=== PATIENT | male | born 1940 | race Caucasian/White ===

== ENCOUNTER 2016-09-19 19:14 | Inpatient (IN) | payer OTHER ==
[2016-09-19] MEDS ORDERED: NS 1,000 ML IV ONE (20:32)
--- NOTE | 2016-09-19 20:34 | PROVIDER DOCUMENTATION ---
HPI-Fever <Scott Figueroa - Last Filed: 09/19/16 22:57> - General Source: patient, family - History of Present Illness-Fever Fever Severity/Quality: reports: greater than 102 F (102.4 in triage) Onset/Duration: reports: gradual, 1 week ago Timing: reports: still present Severity: reports: moderate Context: reports: decreased mental status, confusion Cognitive Baseline: alert, oriented x3 Associated Symptoms: reports: cough, fatigue, fever/chills, headaches, shortness of breath, weakness, trouble walking. denies: anxiety, arm pain, back /neck pain, chest pain, constipation, diarrhea, nausea, vomiting <Justin Sanchez - Last Filed: 09/20/16 00:34> - General Chief Complaint: Fall Stated Complaint: FALL, HIT HEAD X2 Time Seen by Provider: 09/19/16 19:43 Allergies/Adverse Reactions: Patient Allergies Allergy/AdvReac Type Severity Reaction Status Date / Time No Known Allergies Allergy Verified 09/19/16 20:40 Home Medications: Home Medication List Medication Instructions Recorded Confirmed Last Taken Type Aspirin 81 mg PO DAILY 12/08/12 09/19/16 09/19/16 History Memantine HCl [Namenda] 10 mg PO BID 03/27/16 09/19/16 09/19/16 History Roflumilast [Daliresp] 1 each PO DAILY 03/27/16 09/19/16 09/19/16 History Lisinopril/Hydrochlorothiazide 1 each PO DAILY 09/19/16 09/19/16 09/19/16 History [Lisinopril-Hctz 20-12.5 mg Tab] - History of Present Illness-Fever Nature of Presenting Problem: Pt is a 76 yom who presents to ER with CC of falling x2 today. Pt's daughter reports that pt was going to the bathroom when he fell and hit his head on the wall behind the toilet. Pt then got up and was walking down the fong when he fell and hit his head again on the wall. Pt does report having a mild headache, but denies loc/cp/sob On exam, pt did not have any obvious signs of injury, but family does reports that pt has been slowly losing his mobility for approximately 1 week. Pt's daughter also reports that pt has developed a green sputum cough x1 week. In triage, pt had fever of 102.4. (Justin Sanchez) Review of Systems - Adult - REVIEW OF SYSTEMS - ADULT Constitutional: reports: fever, fatique. denies: chills, night sweats Eyes: reports: no symptoms reported Ears, Nose, Mouth & Throat: reports: no symptoms reported Cardiovascular: denies: chest pain, edema, heart murmur, irregular heart rate, palpitations, poor circulation, syncope Respiratory: reports: cough, excessive sputum production. denies: chronic cough , dyspnea on exertion, hemoptysis, pleurisy, shortness of breath, wheezing Gastrointestinal: reports: no symptoms reported Genitourinary: denies: dysuria, flank pain, frequent UTI's, hematuria Musculoskeletal: denies: bone pain, back pain, frequent leg cramps, muscle aches , muscle weakness, neck pain Integumentary: reports: no symptoms reported Neurological: reports: headache/migraines, loss of balance. denies: ataxia, dizziness/vertigo, numbness, paresthesia, seizure, slurred speech, syncope, tremors Psychiatric: reports: other (early onset dementia, per family). denies: anxiety , anti-depressant use, alcohol/drug dependence, depression, emotional problems, insomnia, panic attacks, suicidal thoughts Endocrine: reports: no symptoms reported Hematologic/Lymphatic: reports: no symptoms reported Allergic/Immunologic: reports: no symptoms reported All Other Systems: Reviewed and Negative <Justin Sanchez - Last Filed: 09/20/16 00:34> Past History - Adult - PAST MEDICAL HISTORY-ADULT Review of Records: reports: Nursing Assessment Review, Medications Reviewed - IMMUNIZATION STATUS Childhood Immunizations: See Nurse Assessment Flu Vaccine: See Nurse Assessment <Justin Sanchez - Last Filed: 09/20/16 00:34> Physical Exam-General - PHYSICAL EXAM-ADULT Initial Vital Signs Reviewed: Yes - CONSTITUTIONAL General Appearance: appears well, alert, no apparent distress, lethargic. negative: cachetic, obese, thin, anxious - NECK Neck: non-tender, full range of motion, supple - RESPIRATORY Respiratory: chest non-tender, lungs clear, normal breath sounds. negative: respiratory distress, decreased breath sounds, accessory muscle use, wheezing - CARDIOVASCULAR Cardiovascular: normal peripheral pulses, tachycardia. negative: bradycardia, irregularly irregular - MUSCULOSKELETAL Back Exam: no CVA tenderness, no vertebral tenderness. negative: CVA tenderness , decreased range of motion, muscle spasm, swelling, vertebral tenderness Extremity: normal range of motion, non-tender, normal gait, pedal edema (+1 pitting bilaterally). negative: erythema, inflammation, swelling, tenderness - SKIN Integumentary: swelling (+1 pitting edema bilateral lower extremities). negative: abrasion(s), erythema, laceration(s), tenderness, warm - NEUROLOGIC Neurologic: grossly normal, no motor/sensory deficits - PSYCHIATRIC Psych/Mental Status: normal mood/affect, normal thought content, normal thought process, oriented x 3 <Justin Sanchez - Last Filed: 09/20/16 00:34> Progress <Scott Figueroa - Last Filed: 09/19/16 22:57> - XRAY 1 XRAY: Bilateral XRAY Study: Chest Impression: See EMR Report (Lower infiltrate appreciated on lateral view only; Question L sided infiltrate) XRAY Interpretation: See report - CT/MRI 1 CT Study: Head Impression: See EMR Report CT Results: Mild atrophy, unchanged; Otherwise NAD - CONSULTS/PCP/HOSPITALIST Notification #1 *Consult/PCP/Hospitalist*: Dr. Ya (Hospitalist) Time Discussed: 00:34 Consult Disposition: Admit <Justin Sanchez - Last Filed: 09/20/16 00:34> - PLAN OF CARE/RESULTS Progress/Plan/Lab Results: POC: labs/radiology Vital Signs - 24 hr 09/19/16 09/19/16 09/19/16 19:21 20:34 21:18 Temperature 102.4 F H 101.5 F H Pulse Rate 116 H 105 H 102 H Respiratory 20 20 20 Rate Blood Pressure 166/86 126/62 O2 Sat by Pulse 96 94 L 94 L Oximetry 09/19/16 22:47 Temperature 98.2 F Pulse Rate 87 Respiratory 20 Rate Blood Pressure 109/66 O2 Sat by Pulse 94 L Oximetry Orders Category Date Time Status Cardiac Monitoring DIRECTED Care 09/19/16 20:29 Active IV Insertion ORDERED Care 09/19/16 20:29 Active Notify MD of + Sepsis Screen NOW Care 09/19/16 20:29 Active CHEST-2 VIEWS [RAD] Stat Exams 09/19/16 20:29 Taken HEAD W/O CONTRAST [CT] Stat Exams 09/19/16 19:28 Taken BLOOD CULTURE [BLDCUL] Stat Lab 09/19/16 21:06 Received CBC WITH DIFF [HEME] Stat Lab 09/19/16 20:59 Completed CK PROFILE [SP CHEM] Stat Lab 09/19/16 20:59 Completed COMPREHENSIVE METABOLIC PANEL [CHEM] Stat Lab 09/19/16 20:59 Completed INFLUENZA SCREEN A/B Stat Lab 09/19/16 20:59 Completed LACTATE, PLASMA [CHEM] Stat Lab 09/19/16 20:59 Completed PROTIME WITH INR [COAG] Stat Lab 09/19/16 20:59 Completed PTT [COAG] Stat Lab 09/19/16 20:59 Completed TROPONIN T Stat Lab 09/19/16 20:59 Completed URINALYSIS W/POSS RFLX CULT [URINALYSIS] Stat Lab 09/19/16 22:18 Completed 0.9% Sodium Chloride Inj [Ns] 1,000 ml Med 09/19/16 20:32 Discontinued IV 999 mls/hr Acetaminophen [Tylenol] Med 09/19/16 20:54 Discontinued 1,000 mg PO NOW ONE Azithromycin 500 mg/Ns [Zithromax 500 mg/Ns] 250 ml Med 09/19/16 22:50 Discontinued IV NOW CefTRIAXONE 1 GM/NS [Rocephin 1 gm/Ns] 50 ml Med 09/19/16 22:50 Discontinued IV NOW Oxygen Device Stat Oth 09/19/16 20:29 Active Laboratory Tests 09/19/16 09/19/16 09/19/16 20:59 20:59 20:59 WBC 10.74 RBC 4.61 L Hgb 13.8 L Hct 41.8 L MCV 90.7 MCH 29.9 MCHC 33.0 RDW Std Deviation 14.0 Plt Count 182 MPV 11.0 H Immature Gran % (Auto) 0.4 Neut % (Auto) 77.5 H Lymph % (Auto) 10.0 L Butler % (Auto) 11.8 H Eos % (Auto) 0.1 Baso % (Auto) 0.2 Immature Gran # (Auto) 0.04 Neut # (Auto) 8.33 H Lymph # (Auto) 1.07 L Butler # (Auto) 1.27 H Eos # (Auto) 0.01 Baso # (Auto) 0.02 PT INR PTT (Actin FS) Sodium 141 Potassium 4.4 Chloride 100 Carbon Dioxide 29 Anion Gap 12 BUN 12 Creatinine 0.9 Estimated GFR/1.73 m2 > 60 BUN/Creatinine Ratio 13 Glucose 118 H Calculated Osmolality 282 Calcium 8.8 Total Bilirubin 0.60 AST 15 ALT 12 Alkaline Phosphatase 98 Creatine Kinase 54 Troponin T Total Protein 6.7 Albumin 3.7 Globulin 3.0 Albumin/Globulin Ratio 1.2 Plasma Lactate 1.3 Urine Source Urine Color Urine Turbidity Urine pH Ur Specific Bryan Urine Protein Ur Glucose (Stick) Ur Ketones (Stick) Urine Blood Urine Nitrite Urine Bilirubin Urobilinogen Dipstick Urine Leukocytes Urine WBC (Auto) Urine RBC (Auto) U Epithel Cells (Auto) Urine Bacteria (Auto) 09/19/16 09/19/16 09/19/16 20:59 20:59 22:18 WBC RBC Hgb Hct MCV MCH MCHC RDW Std Deviation Plt Count MPV Immature Gran % (Auto) Neut % (Auto) Lymph % (Auto) Butler % (Auto) Eos % (Auto) Baso % (Auto) Immature Gran # (Auto) Neut # (Auto) Lymph # (Auto) Butler # (Auto) Eos # (Auto) Baso # (Auto) PT 11.4 INR 1.07 PTT (Actin FS) 26.5 Sodium Potassium Chloride Carbon Dioxide Anion Gap BUN Creatinine Estimated GFR/1.73 m2 BUN/Creatinine Ratio Glucose Calculated Osmolality Calcium Total Bilirubin AST ALT Alkaline Phosphatase Creatine Kinase Troponin T < 0.010 Total Protein Albumin Globulin Albumin/Globulin Ratio Plasma Lactate Urine Source CLEAN CATCH Urine Color YELLOW Urine Turbidity CLEAR Urine pH 7.0 Ur Specific Bryan 1.020 Urine Protein NEGATIVE Ur Glucose (Stick) NEGATIVE Ur Ketones (Stick) NEGATIVE Urine Blood MODERATE A Urine Nitrite NEGATIVE Urine Bilirubin NEGATIVE Urobilinogen Dipstick 4 A Urine Leukocytes NEGATIVE Urine WBC (Auto) <10 Urine RBC (Auto) TNTC A U Epithel Cells (Auto) <10 Urine Bacteria (Auto) NEGATIVE (Justin Sanchez) Departure - Departure Time of Disposition Order: 22:57 Certified Medical Emergency: Emergent <Scott Figueroa - Last Filed: 09/19/16 22:57> - Departure Time of Disposition Order: 00:34 Certified Medical Emergency: Emergent <Justin Sanchez - Last Filed: 09/20/16 00:34> - Departure DIAGNOSIS: Pneumonia Qualifiers: Pneumonia type: due to unspecified organism Laterality: left Lung location: upper lobe of lung Qualified Code(s): J18.1 - Lobar pneumonia, unspecified organism Disposition: ADMITTED INPATIENT 09 Condition: Fair Referrals: Clare Moore MD [Primary Care Provider] - Attestation - Scribe Verification/Attestation Scribe:: Justin Sanchez Acting as Scribe for:: Scott Figueroa Scribe documention review:: This chart was documented by a scribe and accurately reflects the service the provider performed and the decisions made by the provider. <Justin Sanchez - Last Filed: 09/20/16 00:34> Physician Attestation
[2016-09-19] MEDS ORDERED: TYLENOL PO ONE (20:54)
[2016-09-19 21:20] LABS: MANUAL DIFF NEEDED? NO
[2016-09-19 21:34] LABS: BASO% 0.2 % (0.0-0.8); EOS# 0.01 X1000 (0.0-0.7); EOS% 0.1 % (0.0-10.0); HEMATOCRIT 41.8 % (42.0-52.0); HEMOGLOBIN 13.8 g/dL (14.0-18.0); IMM GRAN# 0.04 X1000 (0.0-0.04); IMM GRAN% 0.4 % (0.0-0.5); LYMPH# 1.07 X1000 (1.2-3.4); MCH 29.9 PG (27-31); MCV 90.7 FL (81-99); MONO# 1.27 X1000 (0.11-0.59); MONO% 11.8 % (1.7-9.3); NEUT% 77.5 % (42.2-75.2); PLT 182 X1000 (130-400); RBC 4.61 XMIL (4.7-6.1)
[2016-09-19 21:42] LABS: INR 1.07; PROTIME 11.4 Seconds (9.2-11.7); PTT 26.5 Seconds (22.0-36.0)
[2016-09-19 21:52] LABS: AGAP 12; ALBUMIN 3.7 g/dL (3.5-5.0); ALKALINE PHOSPHATASE 98 U/L (32-122); BUN 12 mg/dL (8-22); CALCIUM 8.8 mg/dL (8.8-10.2); CHLORIDE 100 mmol/L (98-107); CK PROFILE 54 U/L (24-204); COSMO 282; GOT 15 U/L (10-34); GPT 12 U/L (10-44); POTASSIUM 4.4 mmol/L (3.5-5.1); SODIUM 141 mmol/L (136-145); TCO2 29 mmol/L (25-35); TOTAL PROTEIN 6.7 g/dL (6.3-8.3)
[2016-09-19 22:35] LABS: URINE CULTURE NEEDED? NO; URINE MICRO REVIEW NEEDED? NO; URINE SOURCE CLEAN CATCH
[2016-09-19 22:41] LABS: BILIRUBIN URINE NEGATIVE (NEGATIVE); BLOOD URINE MODERATE (NEGATIVE); COLOR YELLOW; GLUCOSE URINE NEGATIVE (NEGATIVE); LEUKOCYTES URINE NEGATIVE (NEGATIVE); NITRITE URINE NEGATIVE (NEGATIVE); PROTEIN URINE NEGATIVE (NEGATIVE); TURBIDITY URINE CLEAR (CLEAR); UROBILINOGEN URINE 4 mg/dL (NORMAL)
[2016-09-19 22:42] LABS: UR EPITHELIAL CELLS <10 /HPF (<10); URINE BACTERIA NEGATIVE /HPF; URINE RBC TNTC /HPF (<10); URINE WBC <10 /HPF (<10)
[2016-09-19] MEDS ORDERED: ROCEPHIN 1 GM/NS 50 ML IV ONE (22:50)
[2016-09-19] MEDS ORDERED: ZITHROMAX 500 MG/NS 250 ML IV ONE (22:50)
[2016-09-20] MEDS ORDERED: ZOFRAN IV PRN (02:44)
[2016-09-20] MEDS ORDERED: DUONEB (A & A) INH PRN (02:44)
[2016-09-20] MEDS: SODIUM CHLORIDE 0.9% INJ SCH (03:44)
[2016-09-20] MEDS: PROTONIX IV SCH (03:44)
[2016-09-20] MEDS: NS 1,000 ML IV SCH ×2 (03:44→16:49)
[2016-09-20] MEDS: DUONEB (A & A) INH SCH ×4 (03:48→22:10)
[2016-09-20 05:45] LABS: ALLEN TEST YES; BE 1.7 mmoll (-3.0-3.0); BLOOD TYPE ARTERIAL; DRAW SITE R RADIAL; METHB 1.5 % (0.0-1.5); PCO2(98.6) 42 mmHg (35-45); PO2(98.6) 86 mmHg (60-100); SAMPLE BLOOD; SAO2 98.7 % (95.0-100.0); THB 11.9 g/dL (11.5-17.4); pH(98.6) 7.41 (7.35-7.45)
[2016-09-20 05:46] LABS: MODALITY CANNULA
[2016-09-20] MEDS: LOVENOX SUBQ SCH (06:14)
[2016-09-20 06:42] LABS: MANUAL DIFF NEEDED? NO
[2016-09-20 06:47] LABS: BASO% 0.1 % (0.0-0.8); EOS# 0.01 X1000 (0.0-0.7); EOS% 0.1 % (0.0-10.0); HEMATOCRIT 38.1 % (42.0-52.0); HEMOGLOBIN 12.6 g/dL (14.0-18.0); LYMPH# 1.61 X1000 (1.2-3.4); LYMPH% 22.6 % (20.5-51.1); MCH 30.2 PG (27-31); MCHC 33.1 g/dL (33-37); MCV 91.4 FL (81-99); MONO# 1.05 X1000 (0.11-0.59); MONO% 14.7 % (1.7-9.3); MPV 10.9 FL (7.4-10.4); NEUT% 62.5 % (42.2-75.2); PLT 162 X1000 (130-400); RBC 4.17 XMIL (4.7-6.1)
[2016-09-20 07:12] LABS: AGAP 8; BUN 10 mg/dL (8-22); CALCIUM 8.3 mg/dL (8.8-10.2); CHLORIDE 105 mmol/L (98-107); COSMO 283; POTASSIUM 3.6 mmol/L (3.5-5.1); SODIUM 142 mmol/L (136-145); TCO2 29 mmol/L (25-35)
--- NOTE | 2016-09-20 07:35 | HISTORY AND PHYSICAL ---
PRIMARY CARE PHYSICIAN: Horacio Moore MD CHIEF COMPLAINT: Recurrent falls, fever and cough. HISTORY OF PRESENT ILLNESS: This is a 76-year-old male, with past medical history of COPD, prostate cancer, who was brought to the emergency department because of fall. The patient's daughter reports that patient was going to the bathroom today, when he fell, and hit his head on the wall behind the toilet, and then the patient was to weak to get up. Then, he was walking down the fong, when he fell again and hit his head again on the wall. The patient does not report any headache,any chest pain or any dizziness or sensation of shortness of breath just prior to the episode. As per the patient's daughter, family reports that this patient has been slowly losing his mobility for approximately 1 week. He reported actually he was having a bad cough with greenish sputum that is going on for 1 week. In the hospital, he was found to have a temperature of 103.4. X-ray shows a mild pneumonia, so patient is going to be admitted for further management. PAST MEDICAL HISTORY: 1. Prostate cancer. 2. Hypertension. 3. Dementia. 4. COPD. PAST SURGICAL HISTORY: Just prostatectomy. SOCIAL HISTORY: The patient quit smoking 10 years ago. Denies drinking alcohol or using illicit drugs. ALLERGIES: The patient does not have any known drug allergies. REVIEW OF SYSTEMS: Eleven systems were reviewed and all symptoms are as related to H P. PHYSICAL EXAMINATION: VITAL SIGNS: Temperature on admission 102.4, now is 98.2. Respiratory rate 20, blood pressure 126/62, O2 saturation 94% on room air. GENERAL: This is a 76-year-old male, lying in bed, in no acute distress. HEENT: Anicteric sclerae. Pale conjunctivae. Mucous membranes moist. NECK: Supple. No JVD noted. No carotid bruits. No lymphadenopathy. No thyromegaly. CARDIOVASCULAR: S1, S2 heard. No murmurs, gallops, or rubs. Regular rate and rhythm. RESPIRATORY: Clear bilaterally to auscultation. Decreased breath sounds globally. Mild wheezing in both bases. Patient is not using any accessory muscles or having work of breathing. ABDOMEN: Soft, nontender to palpation. Bowel sounds present. No organomegaly. EXTREMITIES: No clubbing, cyanosis or edema. Peripheral pulses present in both legs. NEUROLOGICAL: Patient alert and oriented x3. Able to move 4 extremities. Cranial nerves grossly normal. LABORATORY DATA: White cell count 10.74, hemoglobin 13.9, hematocrit 41.8, platelets 182,000. BMP unremarkable. ASSESSMENT AND PLAN: 1. Community-acquired pneumonia. 2. Recurrent falls. 3. History of prostate cancer. 4. Chronic obstructive pulmonary disease. PLAN: The patient is going to be admitted to the hospital because of right lower lobe pneumonia. Patient is going to be restarted on IV antibiotics, in this case, ceftriaxone. We are going to provide also DuoNeb's considering this patient has COPD. Also for recurrent falls, physical therapy will be consulted. The rest of the treatment as per patient's clinical course.
--- NOTE | 2016-09-20 07:55 | Diag Imaging Result Document ---
PROCEDURE NAME: CHEST-2 VIEWS - 09/19/2016 TWO VIEWS OF THE CHEST: FINDINGS: There is bibasilar atelectasis. The appearance of the chest has not changed significantly since 03/26/2016. IMPRESSION: Stable chest.
[2016-09-20] MEDS: DALIRESP PO SCH (09:17)
[2016-09-20] MEDS: PRINZIDE 20/12.5MG PO SCH (09:17)
[2016-09-20] MEDS: NAMENDA PO SCH ×2 (09:17→21:07)
[2016-09-20] MEDS: ASPIRIN PO SCH (09:18)
--- NOTE | 2016-09-20 11:16 | Diag Imaging Result Document ---
PROCEDURE NAME: HEAD W/O CONTRAST - 09/19/2016 CT OF THE HEAD WITHOUT CONTRAST: There are calcifications in the right vertebral artery and the basilar artery. The basilar artery is markedly distended and elongated in appearance consistent with dolichoectasia. This measures 1.6 cm in diameter and has not changed appreciably since 03/27/2016. The right middle cerebral artery is also slightly distended to 6 mm as it was previously. There is no evidence of bleed or mass effect intracranially. There is mild generalized cerebral and cerebellar atrophy. There is fluid and mucosal thickening in the right maxillary sinus which was not present on the previous study. There is some ethmoid air cell opacification as well. IMPRESSION: Sinusitis otherwise stable since 03/27/2016.
[2016-09-20] MEDS: ROCEPHIN 1 GM/NS 50 ML IV SCH (21:07)
[2016-09-20] MEDS: TYLENOL PO PRN (21:07)
[2016-09-20] MEDS ORDERED: FLUZONE QUAD 2016-2017 SYRINGE IM ONE (22:29)
[2016-09-21] MEDS: PROTONIX IV SCH (03:02)
--- NOTE | 2016-09-21 03:05 | PROGRESS NOTE ---
DATE: 09/20/2016 Mr. Neil was admitted early this morning with pneumonia. He is on oxygen. He is getting IV antibiotics. He was seen by the emergency room physician earlier. His CBC is unremarkable. Blood gases are stable. He is getting ceftriaxone as well as azithromycin and bronchodilators. We will continue the current management on him. -8
[2016-09-21] MEDS: DUONEB (A & A) INH SCH ×4 (05:15→19:58)
[2016-09-21] MEDS: LOVENOX SUBQ SCH (06:00)
[2016-09-21] MEDS: NS 1,000 ML IV SCH ×2 (06:02→21:27)
[2016-09-21 06:39] LABS: MANUAL DIFF NEEDED? NO
[2016-09-21 06:43] LABS: BASO% 0.2 % (0.0-0.8); EOS# 0.06 X1000 (0.0-0.7); EOS% 1.2 % (0.0-10.0); HEMATOCRIT 35.5 % (42.0-52.0); HEMOGLOBIN 11.7 g/dL (14.0-18.0); MCH 30.1 PG (27-31); MCV 91.3 FL (81-99); MPV 10.9 FL (7.4-10.4); NEUT% 62.6 % (42.2-75.2); PLT 168 X1000 (130-400); RBC 3.89 XMIL (4.7-6.1)
[2016-09-21 07:14] LABS: AGAP 8; BUN 9 mg/dL (8-22); CALCIUM 8.3 mg/dL (8.8-10.2); CHLORIDE 101 mmol/L (98-107); COSMO 274; POTASSIUM 3.7 mmol/L (3.5-5.1); SODIUM 138 mmol/L (136-145); TCO2 29 mmol/L (25-35)
[2016-09-21] MEDS: ASPIRIN PO SCH (10:24)
[2016-09-21] MEDS: DALIRESP PO SCH (10:24)
[2016-09-21] MEDS: NAMENDA PO SCH (10:24)
[2016-09-21] MEDS: PRINZIDE 20/12.5MG PO SCH (10:24)
[2016-09-21] MEDS: ROCEPHIN 1 GM/NS 50 ML IV SCH (21:28)
[2016-09-22] MEDS: TYLENOL PO PRN (00:21)
[2016-09-22] MEDS: DUONEB (A & A) INH SCH ×2 (03:51→09:52)
[2016-09-22 05:08] LABS: ALLEN TEST YES; BE 5.5 mmoll (-3.0-3.0); BLOOD TYPE ARTERIAL; DRAW SITE R RADIAL; METHB 1.1 % (0.0-1.5); PCO2(98.6) 42 mmHg (35-45); PO2(98.6) 54 mmHg (60-100); SAMPLE BLOOD; SAO2 92.5 % (95.0-100.0); pH(98.6) 7.46 (7.35-7.45)
[2016-09-22 05:14] LABS: MODALITY CANNULA
[2016-09-22] MEDS: PROTONIX IV SCH (06:09)
[2016-09-22] MEDS: SODIUM CHLORIDE 0.9% INJ SCH (06:09)
[2016-09-22] MEDS: LOVENOX SUBQ SCH (06:10)
[2016-09-22 06:39] LABS: MANUAL DIFF NEEDED? NO
[2016-09-22 06:52] LABS: BASO% 0.2 % (0.0-0.8); EOS# 0.07 X1000 (0.0-0.7); EOS% 1.3 % (0.0-10.0); HEMATOCRIT 37.9 % (42.0-52.0); HEMOGLOBIN 12.6 g/dL (14.0-18.0); LYMPH# 1.04 X1000 (1.2-3.4); LYMPH% 19.9 % (20.5-51.1); MCH 29.9 PG (27-31); MCHC 33.2 g/dL (33-37); MCV 89.8 FL (81-99); MONO# 0.84 X1000 (0.11-0.59); MONO% 16.1 % (1.7-9.3); MPV 10.9 FL (7.4-10.4); NEUT% 62.5 % (42.2-75.2); PLT 190 X1000 (130-400); RBC 4.22 XMIL (4.7-6.1)
[2016-09-22 06:53] LABS: AGAP 11; BUN 5 mg/dL (8-22); CALCIUM 8.6 mg/dL (8.8-10.2); CHLORIDE 104 mmol/L (98-107); COSMO 280; POTASSIUM 3.5 mmol/L (3.5-5.1); SODIUM 142 mmol/L (136-145); TCO2 27 mmol/L (25-35)
[2016-09-22 07:19] LABS: FREE T4 1.16 ng/dL (0.93-1.70); PSA SCREEN 0.01 ng/mL (0.00-6.22)
[2016-09-22 07:28] VITALS: BP 124/65
[2016-09-22] MEDS: PRINZIDE 20/12.5MG PO SCH (09:36)
[2016-09-22] MEDS: ASPIRIN PO SCH (09:36)
[2016-09-22] MEDS: DALIRESP PO SCH (09:36)
[2016-09-22] MEDS ORDERED: PNEUMOVAX 23 IM ONE (10:53)
[2016-09-22] MEDS ORDERED: FLUZONE QUAD 2016-2017 SYRINGE IM ONE (10:57)
== END 2016-09-22 12:08 | DRG 190 ==
LOC: ED 19:14 → 3N 09-20 01:26
PROVIDERS: ADMIT Internal Medicine; ATTEND Internal Medicine
DX: J44.0 Chronic obstructive pulmonary disease with (acute) lower respiratory infection (principal); J18.9 Pneumonia, unspecified organism; I10 Essential (primary) hypertension; F03.90 Unspecified dementia, unspecified severity, without behavioral disturbance, psychotic disturbance, mood disturbance, and anxiety; Z23 Encounter for immunization; Z85.46 Personal history of malignant neoplasm of prostate; Z87.891 Personal history of nicotine dependence; Z91.81 History of falling
CPT/HCPCS: 70450; 71020; 80048; 80053; 81001; 82550; 82607; 82805; 83605; 84153; 84439; 84443; 84484; 84550; 85025; 85610; 85730; 87040; 87804; 90732; 94640; 94761; 96365; C9113; J0456; J0696; J1650; J7030; Q2038; 97110-GP; 97116-GP; 97530-GP; S0164

== ENCOUNTER 2017-04-27 15:41 | Inpatient (IN) ==
[2017-04-27 19:46] LABS: HEMATOCRIT 36.6 % (42.0-52.0); MCHC 32.8 g/dL (33-37); MCV 88.4 FL (81-99); MPV 11.2 FL (7.4-10.4); RBC 4.14 XMIL (4.7-6.1)
[2017-04-27 20:10] LABS: AGAP 8; ALBUMIN 3.6 g/dL (3.5-5.0); ALKALINE PHOSPHATASE 113 U/L (32-122); BUN 12 mg/dL (8-22); CALCIUM 8.9 mg/dL (8.8-10.2); CHLORIDE 102 mmol/L (98-107); COSMO 281; GOT 9 U/L (10-34); GPT 6 U/L (10-44); POTASSIUM 3.7 mmol/L (3.5-5.1); SODIUM 141 mmol/L (136-145); TCO2 31 mmol/L (25-35); TOTAL BILIRUBIN 0.49 mg/dL (0.20-1.00); TOTAL PROTEIN 6.6 g/dL (6.3-8.3)
[2017-04-27] MEDS: NAMENDA PO SCH (23:52)
[2017-04-28 00:01] LABS: URINE MICRO REVIEW NEEDED? NO; URINE SOURCE VOIDED
[2017-04-28 00:37] LABS: BILIRUBIN URINE NEGATIVE (NEGATIVE); COLOR YELLOW; GLUCOSE URINE NEGATIVE (NEGATIVE); LEUKOCYTES URINE MODERATE (NEGATIVE); NITRITE URINE NEGATIVE (NEGATIVE); PROTEIN URINE 100 mg/dL (NEGATIVE); SP GRAVITY URINE 1.021; TURBIDITY URINE HAZY (CLEAR); UROBILINOGEN URINE 2 mg/dL (NORMAL)
[2017-04-28 01:10] LABS: BLOOD URINE LARGE (NEGATIVE); UR EPITHELIAL CELLS <10 /HPF (<10); URINE BACTERIA 1+ /HPF; URINE RBC TNTC /HPF (<10); URINE WBC TNTC /HPF (<10)
--- NOTE | 2017-04-28 05:19 | EKG Report ---
Test Performed on : 04/27/2017 9:16:19 PM Test Reason : chest pain Blood Pressure : / mmHG Vent. Rate : 084 BPM Atrial Rate : 084 BPM P-R Int : 190 ms QRS Dur : 098 ms QT Int : 388 ms P-R-T Axes : 029 031 053 degrees QTc Int : 458 ms Normal sinus rhythm. Normal ECG When compared with ECG of 26-MAR-2016 23:05, No significant change was found Confirmed by Luciana WALKER, Willie Nice ([id number]) on 04/28/2017 10:05:26 AM
--- NOTE | 2017-04-28 08:23 | Diag Imaging Result Doc PS360 ---
CHEST-2 VIEWS - 04/28/2017 INDICATION: hypoxia TECHNIQUE: COMPARISON: 09/19/2016 FINDINGS: There are stable calcified granulomas in the lung apices bilaterally. There is some minimal linear atelectasis or scarring at the lung bases. No focal infiltrates, pneumothorax, or pleural effusion. Heart size and pulmonary vascularity is normal. IMPRESSION: No acute disease. Electronically signed by Brandt Doran 04/28/2017 8:20 AM
[2017-04-28] MEDS ORDERED: PRINZIDE 20/12.5MG PO SCH (09:00)
[2017-04-28] MEDS: NAMENDA PO SCH ×2 (09:29→21:10)
[2017-04-28] MEDS ORDERED: MORPHINE IV ONE (18:41)
[2017-04-28] MEDS ORDERED: ASPIRIN PO ONE (18:42)
[2017-04-28] MEDS: PROTONIX IV SCH (21:10)
[2017-04-28] MEDS: SODIUM CHLORIDE 0.9% INJ SCH (21:10)
--- NOTE | 2017-04-29 06:04 | EKG Report ---
Test Performed on : 04/28/2017 6:28:34 PM Test Reason : chest pain Blood Pressure : / mmHG Vent. Rate : 094 BPM Atrial Rate : 094 BPM P-R Int : 178 ms QRS Dur : 096 ms QT Int : 356 ms P-R-T Axes : 054 -28 037 degrees QTc Int : 445 ms Normal sinus rhythm. Moderate voltage criteria for LVH, may be normal variant Borderline ECG When compared with ECG of 27-APR-2017 21:16, No significant change was found Confirmed by Luciana WALKER, Willie Nice ([id number]) on 04/30/2017 11:54:26 AM
[2017-04-29] MEDS ORDERED: XYLOCAINE-MPF 2% ONE (08:28)
[2017-04-29] MEDS ORDERED: DIPRIVAN 1% ONE (08:28)
[2017-04-29] MEDS ORDERED: HEPARIN ONE ×2 (08:28)
[2017-04-29] MEDS ORDERED: KEFZOL ONE (08:28)
[2017-04-29] MEDS ORDERED: NS 2,000 ML ONE (08:28)
[2017-04-29] MEDS ORDERED: MARCAINE 0.25% PF ONE (08:28)
[2017-04-29] MEDS ORDERED: QUELICIN (DOSE) ONE (08:28)
[2017-04-29] MEDS ORDERED: NORCURON ONE (08:29)
[2017-04-29] MEDS ORDERED: SODIUM CHLORIDE 0.9% 10 ML ONE ×2 (08:29→10:56)
[2017-04-29] MEDS: NAMENDA PO SCH ×2 (09:22→20:04)
[2017-04-29] MEDS ORDERED: REGLAN ONE (09:35)
[2017-04-29] MEDS ORDERED: PEPCID ONE (09:35)
[2017-04-29] MEDS ORDERED: XYLOCAINE-MPF 1%/EPI 1:200,000 ONE (09:36)
[2017-04-29] MEDS ORDERED: KEFZOL 1 GM/D5W 1 GM/50 ML IVPB ONE (09:39)
[2017-04-29] MEDS ORDERED: NEO-SYNEPHRINE ONE ×2 (10:35→10:56)
[2017-04-29] MEDS ORDERED: HEPARIN (DOSE) ONE (10:49)
[2017-04-29 10:50] LABS: URINE MICRO REVIEW NEEDED? NO; URINE SOURCE CATH
[2017-04-29 10:55] LABS: BILIRUBIN URINE NEGATIVE (NEGATIVE); BLOOD URINE MODERATE (NEGATIVE); COLOR YELLOW; GLUCOSE URINE NEGATIVE (NEGATIVE); LEUKOCYTES URINE MODERATE (NEGATIVE); NITRITE URINE NEGATIVE (NEGATIVE); PH URINE 5.5; PROTEIN URINE NEGATIVE (NEGATIVE); SP GRAVITY URINE 1.008; TURBIDITY URINE CLEAR (CLEAR); UROBILINOGEN URINE NORMAL (NORMAL)
[2017-04-29 10:57] LABS: UR EPITHELIAL CELLS <10 /HPF (<10); URINE BACTERIA 1+ /HPF; URINE RBC 20-40 /HPF (<10)
[2017-04-29] MEDS ORDERED: ROBINUL ONE ×2 (12:19→12:24)
[2017-04-29] MEDS ORDERED: ZOFRAN ONE (12:55)
[2017-04-29] MEDS ORDERED: FENTANYL ONE (12:57)
[2017-04-29] MEDS ORDERED: NS 1,000 ML ONE (14:22)
[2017-04-29] MEDS ORDERED: KEFZOL 1 GM/D5W 1 GM/50 ML IVPB IV ONE (15:43)
[2017-04-29] MEDS ORDERED: MORPHINE IV PRN (16:43)
[2017-04-29] MEDS: NS 1,000 ML IV SCH (16:45)
[2017-04-29] MEDS: NORCO-10 PO PRN ×2 (16:59→23:49)
[2017-04-29] MEDS: KEFZOL 1 GM/D5W 1 GM/50 ML IVPB IV SCH (17:05)
[2017-04-29] MEDS: SODIUM CHLORIDE 0.9% INJ SCH (20:03)
[2017-04-29] MEDS: PROTONIX IV SCH (20:03)
[2017-04-30] MEDS: KEFZOL 1 GM/D5W 1 GM/50 ML IVPB IV SCH (01:34)
[2017-04-30] MEDS: NS 1,000 ML IV SCH ×3 (01:34→17:10)
[2017-04-30 05:08] LABS: MANUAL DIFF NEEDED? NO
[2017-04-30 05:32] LABS: BASO% 0.1 % (0.0-0.8); HEMATOCRIT 34.7 % (42.0-52.0); HEMOGLOBIN 11.3 g/dL (14.0-18.0); IMM GRAN# 0.03 X1000 (0.0-0.04); IMM GRAN% 0.2 % (0.0-0.5); LYMPH# 0.71 X1000 (1.2-3.4); LYMPH% 5.4 % (20.5-51.1); MCH 28.8 PG (27-31); MCHC 32.6 g/dL (33-37); MCV 88.5 FL (81-99); MONO# 2.35 X1000 (0.11-0.59); MONO% 17.9 % (1.7-9.3); MPV 11.7 FL (7.4-10.4); NEUT% 76.4 % (42.2-75.2); PLT 231 X1000 (130-400); RBC 3.92 XMIL (4.7-6.1)
[2017-04-30 05:42] LABS: AGAP 14; BUN 9 mg/dL (8-22); CALCIUM 8.7 mg/dL (8.8-10.2); CHLORIDE 98 mmol/L (98-107); COSMO 276; POTASSIUM 4.2 mmol/L (3.5-5.1); SODIUM 138 mmol/L (136-145); TCO2 26 mmol/L (25-35)
[2017-04-30] MEDS ORDERED: KEFZOL 1 GM/D5W 1 GM/50 ML IVPB IV ONE (08:25)
[2017-04-30] MEDS: NAMENDA PO SCH (09:54)
[2017-04-30] MEDS ORDERED: NS 500 ML IV ONE (12:30)
[2017-04-30] MEDS: SODIUM CHLORIDE 0.9% INJ SCH (20:39)
[2017-04-30] MEDS: PROTONIX IV SCH (20:39)
[2017-05-01] MEDS: NAMENDA PO SCH ×3 (01:44→20:24)
[2017-05-01 05:29] LABS: MANUAL DIFF NEEDED? NO
[2017-05-01 05:35] LABS: HEMATOCRIT 29.6 % (42.0-52.0); HEMOGLOBIN 9.5 g/dL (14.0-18.0); LYMPH# 1.07 X1000 (1.2-3.4); LYMPH% 11.1 % (20.5-51.1); MCH 29.2 PG (27-31); MCHC 32.1 g/dL (33-37); MCV 91.1 FL (81-99); MONO% 19.8 % (1.7-9.3); MPV 11.5 FL (7.4-10.4); NEUT% 69.1 % (42.2-75.2); PLT 187 X1000 (130-400); RBC 3.25 XMIL (4.7-6.1)
[2017-05-01] MEDS: NS 1,000 ML IV SCH ×2 (05:48→18:03)
[2017-05-01 05:57] LABS: AGAP 11; BUN 12 mg/dL (8-22); CALCIUM 8.4 mg/dL (8.8-10.2); CHLORIDE 103 mmol/L (98-107); COSMO 280; POTASSIUM 3.8 mmol/L (3.5-5.1); SODIUM 140 mmol/L (136-145); TCO2 26 mmol/L (25-35)
[2017-05-01] MEDS: SODIUM CHLORIDE 0.9% INJ SCH (20:18)
[2017-05-01] MEDS: PROTONIX IV SCH (20:18)
[2017-05-02] MEDS: NS 1,000 ML IV SCH ×3 (05:43→18:21)
[2017-05-02] MEDS: NAMENDA PO SCH ×2 (09:25→20:55)
[2017-05-02] MEDS ORDERED: MILK OF MAGNESIA PO SCH (11:00)
[2017-05-02] MEDS: PROTONIX IV SCH (20:55)
[2017-05-02] MEDS: SODIUM CHLORIDE 0.9% INJ SCH (20:55)
[2017-05-03] MEDS: NS 1,000 ML IV SCH (07:33)
[2017-05-03] MEDS: NAMENDA PO SCH ×2 (08:55→20:35)
[2017-05-03] MEDS ORDERED: MILK OF MAGNESIA PO PRN (09:00)
[2017-05-03] MEDS ORDERED: PNEUMOVAX 23 IM ONE (09:45)
[2017-05-03] MEDS: PROTONIX IV SCH (20:35)
[2017-05-03] MEDS: MIRALAX PO SCH (20:35)
[2017-05-04] MEDS: MIRALAX PO SCH (09:31)
[2017-05-04] MEDS: NAMENDA PO SCH (09:31)
[2017-05-04] MEDS: NS 1,000 ML IV SCH (09:32)
[2017-05-04 11:51] VITALS: BP 104/52
== END 2017-05-04 16:03 ==
LOC: DIRADM 15:41 → 3N 16:26 → ICU 04-29 16:07 → 4N 04-30 15:21
PROVIDERS: ADMIT Internal Medicine; ATTEND Internal Medicine

== ENCOUNTER 2019-05-31 10:43 | Inpatient (IN) ==
[2019-05-31] MEDS ORDERED: LOPRESSOR IV ONE (11:17)
[2019-05-31] MEDS ORDERED: NS 1,000 ML IV ONE ×2 (11:17→14:01)
[2019-05-31] MEDS ORDERED: MORPHINE IV ONE ×2 (11:17→15:19)
[2019-05-31] MEDS ORDERED: ZOFRAN IV ONE ×2 (11:17→15:19)
--- NOTE | 2019-05-31 12:41 | Diag Imaging Result Doc PS360 ---
EXAM: CT RENAL STONE SEARCH 05/31/2019 HISTORY: right flank pain, history of stones TECHNIQUE: This exam was performed using automated exposure control, adjustment of mA or kV according to patient size, and/or use of iterative reconstruction technique. COMMENT: There is ill-defined alveolar and interstitial opacity in both lower lobes and the right middle lobe. This is slightly worse in the right lower lobe than on the previous study of 12/07/2018. Some of this may be due to differences in inspiration. There is fluid in the right subphrenic space which was not the case on the previous study. There are granulomata in the liver and spleen and there are apparent hepatic cysts which were also present previously. There is an ovoid stone in the right renal pelvis which was also present previously. There is worsened hydronephrosis on the right. There is a stone in the distal right ureter measuring 8 mm in greatest dimension. This was also present previously. There is a small calcification either in the distal right ureter or in the bladder measuring 2 mm in diameter which was also present at the time the previous study. There is no evidence of ureterolithiasis on the left. There is some apparent thickening of the bladder towards the neck and there is extensive calcification in the prostate gland which is not enlarged. There is a small amount of free fluid in the rectovesical pouch which was not evident at the time the previous study. The appendix is normal in appearance. There is dilatation of the mid small bowel apparently with a transitional zone in the lower right abdomen around image 94. This was not present at the time the previous study. There is a small fat-containing umbilical hernia. 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 The left kidney is without evidence of significant hydronephrosis. There are number of cortical cysts one in the upper pole contains some calcification. There is a 3 mm calculus in the lower pole. This was also present previously. IMPRESSION: Worsened right hydronephrosis with nephrolithiasis and distal ureterolithiasis. Partial small bowel obstruction. Minimal ascites. Diverticulosis coli. Electronically signed by Jacob Jha 05/31/2019 12:39 PM
[2019-05-31 13:09] LABS: BASO# 0.01 X1000 (0.0-0.2); BASO% 0.1 % (0.0-0.8); EOS# 0.04 X1000 (0.0-0.7); EOS% 0.5 % (0.0-10.0); HEMOGLOBIN 15.8 g/dL (14.0-18.0); LYMPH# 0.87 X1000 (1.2-3.4); LYMPH% 10.7 % (20.5-51.1); MCHC 32.9 g/dL (33-37); MCV 94.3 FL (81-99); MONO# 0.79 X1000 (0.11-0.59); MONO% 9.7 % (1.7-9.3); MPV 11.3 FL (7.4-10.4); NEUT# 6.44 X1000 (1.4-6.5); PLT 187 X1000 (130-400); RBC 5.09 XMIL (4.7-6.1); RDW 13.7 % (11.5-14.5); WBC 8.15 X1000 (4.8-10.8)
[2019-05-31 13:46] LABS: AGAP 11; ALB/GLOB RATIO 1.4; ALKALINE PHOSPHATASE 118 U/L (32-122); BUN 17 mg/dL (8-22); CALCIUM 9.4 mg/dL (8.8-10.2); CHLORIDE 101 mmol/L (98-107); COSMO 281; CREATININE 0.9 mg/dL (0.7-1.2); ESTIMATED GFR > 60; GLUCOSE 106 mg/dL (70-104); GOT 17 U/L (10-34); GPT 10 U/L (10-44); LIPASE 14 U/L (13-60); POTASSIUM 4.5 mmol/L (3.5-5.1); SODIUM 140 mmol/L (136-145); TCO2 28 mmol/L (25-35); TOTAL BILIRUBIN 1.06 mg/dL (0.20-1.00); TOTAL PROTEIN 6.9 g/dL (6.3-8.3)
[2019-05-31] MEDS ORDERED: ROCEPHIN 1 GM in NS 50 ML IV ONE (14:27)
[2019-05-31 14:36] LABS: INR 1.09; PROTIME 14.2 Seconds (11.0-16.0)
[2019-05-31 14:37] LABS: PTT 26.4 Seconds (22.3-41.8)
[2019-05-31] MEDS ORDERED: MORPHINE IV PRN (15:20)
[2019-05-31] MEDS ORDERED: TYLENOL PO PRN (15:20)
--- NOTE | 2019-05-31 15:20 | PROVIDER DOCUMENTATION ---
This chart was entered by Dm Shields Scribe, acting as scribe for Alberto Washington MD. HPI-General Adult - General Chief Complaint: Nausea/Vomiting Stated Complaint: VOMITING, STOMACH PAIN Time Seen by Provider: 05/31/19 11:04 Source: patient Allergies/Adverse Reactions: Patient Allergies Allergy/AdvReac Type Severity Reaction Status Date / Time donepezil [From Aricept] Allergy NAUSEA/VOMI Verified 12/30/17 04:22 TING Iodinated Contrast Media AdvReac Intermediate Unknown Verified 04/07/18 08:06 [IV Dye] Home Medications: Home Medication List Medication Instructions Recorded Confirmed Last Taken Type Aspirin [Aspirin EC] 81 mg PO DAILY 04/05/18 06/03/18 04/04/18 09:00 History Bicalutamide [Casodex] 50 mg PO DAILY 04/05/18 06/03/18 04/04/18 09:00 History Memantine HCl [Namenda] 10 mg PO BID 04/05/18 06/03/18 04/04/18 21:00 History Metoprolol Tartrate 25 mg PO BID 04/05/18 06/03/18 Unknown History Albuterol 2.5MG/Ipratrop 0.5MG 3 ml INH RTQ6H #120 neb 04/08/18 06/03/18 Unknown Rx [Duoneb (A & A)] Folic Acid 1 mg PO DAILY #30 tablet 04/08/18 06/03/18 Unknown Rx Meclizine [Antivert] 12.5 mg PO TID PRN #15 tablet 04/08/18 06/03/18 Unknown Rx Fluticasone/Vilanterol [Breo 1 puff INH DAILY 06/03/18 06/03/18 Unknown History Ellipta 200-25 Mcg INH] Acetaminophen [Tylenol] 650 mg PO Q6H PRN PRN tablet 06/06/18 Unknown Rx CefUROXIME [Ceftin] 500 mg PO BID #10 tablet 06/06/18 Unknown Rx Furosemide [Lasix] 40 mg PO DAILY #30 tablet 06/06/18 Unknown Rx Potassium Chloride [Klor-Con 10] 10 meq PO DAILY #30 tablet.er 06/06/18 Unknown Rx - History of Present Illness -Gen Adult Nature of Presenting Problems: 79 y/o M presents to the ED with family due to sudden onset of right flank pain. Daughter reports that patient had sudden pain, became diaphoretic, nauseated and vomited. Daughter reported that patient had a blood pressure of 188/109 with a heart rate of 111 at home. Patient does have a brain aneurysm and patient's pcp told them to bring the patient to the ED. Daughter reports that patient does have prostate and lung cancer. Patient has a known history of kidney stones. Patient denies any pain at present. Patient denies any diarrhea and all other symptoms. Location of Pain/Injury: denies: other (right flank) Pain Radiation: reports: no radiation Quality of Pain: reports: aching Severity: reports: moderate Onset/Duration: reports: just prior to arrival Timing: reports: improving Context/Activities at Onset: reports: none Modifying Factors: improves with: nothing Associated Symptoms: reports: diaphoresis, nausea, vomiting Similar Symptoms Previously?: No Recently seen or treated by another doctor?: No Review of Systems - Adult - REVIEW OF SYSTEMS - ADULT Constitutional: denies: chills, fever Eyes: reports: no symptoms reported Ears, Nose, Mouth & Throat: reports: no symptoms reported Cardiovascular: denies: chest pain, palpitations Respiratory: denies: shortness of breath, wheezing Gastrointestinal: reports: abdominal pain, vomiting Genitourinary: reports: flank pain. denies: dysuria, discharge, frequency Musculoskeletal: reports: no symptoms reported Integumentary: reports: other (diaphoresis) Neurological: denies: dizziness/vertigo, headache/migraines Psychiatric: reports: no symptoms reported Endocrine: reports: no symptoms reported Hematologic/Lymphatic: reports: no symptoms reported Allergic/Immunologic: reports: no symptoms reported All Other Systems: Reviewed and Negative Past History - Adult - PAST MEDICAL HISTORY-ADULT Review of Records: reports: Nursing Assessment Review, Medications Reviewed Major Childhood Illnesses: reports: denies history Cardiovascular: reports: HTN Respiratory: reports: asthma, COPD, sleep apnea, other (lung cancer) Gastrointestinal: reports: denies history Obstetrical/Gynecological: reports: denies history Genitourinary: reports: kidney stones, prostate cancer Musculoskeletal: reports: denies history Neurological: reports: dementia, other (brain aneurysm) Endocrine/Immune: reports: denies history Other Conditions: reports: denies history - PRIOR SURGERIES/PROCEDURES Surgical/Procedure History: reports: cholecystectomy, hernia repair - IMMUNIZATION STATUS Childhood Immunizations: See Nurse Assessment Flu Vaccine: See Nurse Assessment - FAMILY HISTORY Family History: reviewed, not pertinent - SOCIAL HISTORY Smoking: quit greater than 1 year Substance Use: denies Physical Exam-General - PHYSICAL EXAM-ADULT Initial Vital Signs Reviewed: Yes - CONSTITUTIONAL General Appearance: alert, no apparent distress - HEAD, EARS, NOSE, MOUTH & THROAT HENMT: moist mucous membranes - NECK Neck: full range of motion, normal inspection - RESPIRATORY Respiratory: lungs clear, normal breath sounds, no respiratory distress, no accessory muscle use - CARDIOVASCULAR Cardiovascular: normal peripheral pulses, regular rate, rhythm - GASTROINTESTINAL (ABDOMEN) Abdominal Exam: soft, other (3-4cm soft supraumbilical hernia; right flank tenderness). negative: guarding, rebound - MUSCULOSKELETAL Back Exam: other (mild right flank tenderness and right costovertebral tenderness) - SKIN Integumentary: normal color, warm/dry - PSYCHIATRIC Psych/Mental Status: normal mood/affect, oriented x 3 Progress - PLAN OF CARE/RESULTS Progress/Plan/Lab Results: Vital Signs - 8 hr 05/31/19 10:48 Temperature 97.3 F L Pulse Rate 74 Respiratory Rate 16 Blood Pressure 149/95 O2 Sat by Pulse Oximetry 94 L Orders Category Date Time Status Saline Loc NOW Care 05/31/19 11:[address] RENAL STONE SEARCH [CT] Stat Exams 05/31/19 11:17 Ordered CBC WITH ELECTRONIC DIFF [HEME] Stat Lab 05/31/19 11:16 Uncollected COMPREHENSIVE METABOLIC PANEL [CHEM] Stat Lab 05/31/19 11:16 Uncollected LACTATE, PLASMA [CHEM] Stat Lab 05/31/19 11:17 Uncollected LIPASE [CHEM] Stat Lab 05/31/19 11:17 Uncollected URINALYSIS W/POSS RFLX CULT [URINALYSIS] Stat Lab 05/31/19 11:17 Uncollected 0.9% Sodium Chloride Inj [Ns] 1,000 ml Med 05/31/19 11:17 Active IV 999 mls/hr Metoprolol [Lopressor] Med 05/31/19 11:17 Discontinued 5 mg IV NOW ONE Morphine Med 05/31/19 11:17 Discontinued 4 mg IV NOW ONE Ondansetron [Zofran] Med 05/31/19 11:17 Discontinued 4 mg IV NOW ONE Result Diagrams: 05/31/19 12:53 05/31/19 12:53 - CT/MRI 1 CT Study: Renal Stone Impression: Abnormal, See EMR Report (EXAM: CT RENAL STONE SEARCH 05/31/2019 HISTORY: right flank pain, history of stones TECHNIQUE: This exam was performed using automated exposure control, adjustment of mA or kV according to patient size, and/or use of iterative reconstruction technique. COMMENT: There is ill-defined alveolar and interstitial opacity in both lower lobes and the right middle lobe. This is slightly worse in the right lower lobe than on the previous study of 12/07/2018. Some of this may be due to differences in in spiration. There is fluid in the right subphrenic space which was not the case on the previous study. There are granulomata in the liver and spleen and there are apparent hepatic cysts which were also present previously. There is an ovoid stone in the right renal pelvis which was also present previously. There is worsened hydronephrosis on the right. There is a stone in the distal right ureter measuring 8 mm in greatest dimension. This was also present previously. There is a small calcification either in the distal right ureter or in the bladder measuring 2 mm in diameter which was also present at the time the previous study. There is no evidence of ureterolithiasis on the left. There is some apparent thickening of the bladder towards the neck and there is extensive calcification in the prostate gland which is not enlarged. There is a small amount of free fluid in the rectovesical pouch which was not evident at the time the previous study. The appendix is normal in appearance. There is dilatation of the mid small bowel apparently with a transitional zone in the lower right abdomen around image 94. This was not present at the time the previous study. There is a small fat-containing umbilical hernia. 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 The left kidney is without evidence of significant hydronephrosis. There are number of cortical cysts one in the upper pole contains some calcification. There is a 3 mm calculus in the lower pole. This was also present previously. IMPRESSION: Worsened right hydronephrosis with nephrolithiasis and distal ureterolithiasis. Partial small bowel obstruction. Minimal ascites. Diverticulosis coli. Electronically signed by Jacob Jha 05/31/2019 12:39 PM 05/31/19 1231 Interpreting Physician: Jacob Jha MD Dictated Date/Time: 05/31/19 1239 cc: Alberto Washington MD; King Armstrong MD) - CONSULTS/PCP/HOSPITALIST Notification #1 *Consult/PCP/Hospitalist*: Harpreet Time Discussed: 14:14 Reason/Comments: Make NPO after midnight if Nathaniel admits to remove stone Consult Disposition: other #2 Consult: Dr. Armstrong Time Discussed: 14:32 Consult Disposition: Admit (give antibiotics) Departure - Departure Date of Disposition Decision: 05/31/19 Time of Disposition Decision: 14:33 DIAGNOSIS: Calculus of distal right ureter, Ureteral obstruction, right, Partial obstruction of small intestine Disposition: ADMITTED INPATIENT 09 Certified Medical Emergency: Emergent Condition: Fair Referrals and Follow-Ups: King Armstrong MD [Primary Care Provider] - - Critical Care Note This patient required my direct & personal management of CC.: No Attestation - Physician/ FARHAT Attestation Patient care was provided by Advanced Practice Provider:: No The physician spent face to face time with patient:: Yes Advanced Practice Provider documentation review:: Supervising physician onsite and consulted in the evaluation and care of this patient. The physician did have a face to face encounter with the patient. This chart was documented by the indicated scribe, (Dm Shields Scribe) and accurately reflects the services I performed and decisions made by me, Alberto Washington MD, as attested by the provider's signature.
[2019-05-31] MEDS ORDERED: SODIUM CHLORIDE 0.9% INJ SCH (18:38)
[2019-05-31] MEDS ORDERED: ZOFRAN IV PRN ×2 (18:38)
[2019-05-31] MEDS: PROTONIX IV SCH (19:34)
[2019-05-31] MEDS ORDERED: POTASSIUM CHLORIDE 10 MEQ in NS 1,000 ML IV SCH (20:00)
[2019-05-31] MEDS: DUONEB (A & A) INH SCH ×2 (20:10→23:04)
--- NOTE | 2019-05-31 21:20 | HISTORY AND PHYSICAL ---
CHIEF COMPLAINT: Nausea and vomiting. Pain in the right lower quadrant. HISTORY OF PRESENT ILLNESS: Mr. Neil is a 79-year-old gentleman complaining of pain in the right lower quadrant, moderate in intensity. The patient vomited 2 to 3 times at home and maybe twice here in the hospital. His blood pressure at home was very high, around 180 systolic. Patient was tachycardic. Patient called my office. We advised daughter to bring him to the ER. Evaluated in the emergency room. Patient found to have obstructive uropathy with 8 mm stone in the right distal ureter, increasing hydronephrosis on the right side, partial small bowel obstruction, minimal ascites. Urologist consulted by ER physician and we decided to admit the patient for further care for pain management, control of nausea and vomiting. Patient did have some chills, but no documented fever. Patient does have cough with expectoration. Known case of COPD. Possible lung mass and lung cancer. Decided not to take any treatment. Recently seen by oncologist. 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 Patient vomitus was at times greenish in color. Vague abdominal pain. Patient did have bowel movement today. No typical chest pain, palpitation, orthopnea, PND. No blood or mucus in the stool. No dysuria or hematuria. No focal weakness. Patient was feeling weak all over. Dull headache. No diplopia. No further history available at this time. ALLERGIES: Aricept, iodinated contrast media. HOME MEDICATIONS: Include: 1. Bronchodilator treatment. 2. Aspirin. 3. Casodex. 4. Breo. 5. Folic acid. 6. Lasix. 7. Meclizine. 8. Namenda. 9. Metoprolol. 10. Potassium. PAST MEDICAL HISTORY: Significant for: 1. Dementia. 2. Hypertension. 3. Congestive heart failure. 4. COPD. 5. Lung mass, presumed to be malignancy. 6. Basilar artery aneurysm. 7. History suggestive of prostate cancer. 8. Abdominal aortic aneurysm and surgery. 9. Gastritis. 10. Osteoarthritis. PERSONAL HISTORY: Single. Quit smoking. Denied alcohol or substance abuse. Needs minimal assistance in activities of daily living. REVIEW OF SYSTEMS: As per HPI. FAMILY HISTORY: Significant for father who of tuberculosis at age 42. Mother at age 82 with possible kidney cancer. PHYSICAL EXAMINATION: GENERAL: Elderly white gentleman in mild distress. VITAL SIGNS: Blood pressure 152/89, pulse 75, respiration 24, temperature 97.3 degrees. SKIN: Senile turgor. HEENT: Head atraumatic, normocephalic. [place] conjunctivae. Anicteric sclerae. Extraocular muscle movement normal. Fundus cannot be penetrated. Good oral hygiene. No tonsillopharyngeal congestion or exudate. Ears and nose benign. NECK: Supple. No JVD, thyromegaly, or lymphadenopathy. CHEST: Bibasilar crepitation. Bilateral occasional wheezing. CARDIOVASCULAR: S1 and S2 heard. 2/6 systolic murmur at the apex. No gallop or thrill. ABDOMEN: Soft, globular. Bowel sounds present. Mild tenderness, right lower quadrant. No guarding or rigidity. Scar of previous surgery well healed. EXTREMITIES: No cyanosis, clubbing. Minimal swelling, both the legs. No acute DVT. SPIRAL RUNNER: Alert, awake, answering questions fairly well. Able to move all 4 limbs. ADMISSION LAB DATA: WBC count 8.15, hemoglobin 15.8, hematocrit 48, platelet count 187,000. PT/INR 1.09, PTT 26.4. Electrolytes result reviewed. CONSIDERATION: 1. Obstructive uropathy with stone in right distal ureter, increasing hydronephrosis. 2. Partial small bowel obstruction. 3. Patient had history of chronic obstructive pulmonary disease. 4. Lung cancer. 5. History of prostate cancer. 6. Dementia. 7. Osteoarthritis. 8. History of basilar artery aneurysm. PLAN: 1. Admit patient. 2. Intravenous hydration. 3. Close observation. 4. Pain management. 5. Urology consult. 6. Will get electrocardiogram, chest x-ray, appropriate labs. 7. Overall plan and prognosis discussed with daughter and patient, and they are in agreement. cc: King Armstrong MD
[2019-05-31 22:29] LABS: URINE SOURCE CLEAN CATCH
[2019-05-31 22:37] LABS: BILIRUBIN URINE NEGATIVE (NEGATIVE); BLOOD URINE MODERATE (NEGATIVE); COLOR YELLOW; GLUCOSE URINE NEGATIVE (NEGATIVE); KETONE URINE TRACE mg/dL (NEGATIVE); LEUKOCYTES URINE NEGATIVE (NEGATIVE); NITRITE URINE NEGATIVE (NEGATIVE); PROTEIN URINE 30 mg/dL (NEGATIVE); SP GRAVITY URINE 1.023; TURBIDITY URINE CLEAR (CLEAR); UROBILINOGEN URINE 6 mg/dL (NORMAL)
[2019-05-31 22:40] LABS: UR EPITHELIAL CELLS <10 /HPF (<10); URINE BACTERIA NEGATIVE /HPF; URINE RBC <10 /HPF (<10); URINE WBC <10 /HPF (<10)
[2019-05-31 22:49] LABS: URINE CASTS NONE SEEN; URINE CRYSTALS CA OXALATE PRESENT; URINE SMALL ROUND CELLS NONE SEEN; URINE YEAST NONE SEEN
--- NOTE | 2019-05-31 23:48 | EKG Report ---
Test Performed on : 05/31/2019 11:02:52 PM Test Reason : CP Blood Pressure : / mmHG Vent. Rate : 087 BPM Atrial Rate : 087 BPM P-R Int : 194 ms QRS Dur : 128 ms QT Int : 394 ms P-R-T Axes : 050 -64 039 degrees QTc Int : 474 ms Sinus rhythm. with occasional premature ventricular complexes. Right bundle branch block Left anterior fascicular block Bifascicular block Minimal voltage criteria for LVH, may be normal variant Septal infarct (cited on or before 30-DEC-2017) Abnormal ECG When compared with ECG of 03-JUN-2018 11:32, premature ventricular complexes. are now present Questionable change in initial forces of Septal leads Unconfirmed Result
[2019-06-01] MEDS ORDERED: ROCEPHIN 1 GM in NS 50 ML IV SCH (04:00)
--- NOTE | 2019-06-01 04:43 | CONSULTATION ---
DATE OF CONSULTATION: 05/31/2019 CHIEF COMPLAINT: Right abdominal pain with nausea. HISTORY OF PRESENT ILLNESS: This 79-year-old male with history of renal lithiasis developed severe right flank and lower quadrant abdominal pains. He was seen in the emergency room where a CT scan was obtained that revealed partial small-bowel obstruction as well as an 8 mm right distal ureteral stone. The patient states he still has some right flank pain, but the lower abdominal pain has resolved. He continues with nausea and vomiting. He has always spontaneously passed stones. He has never had surgery to remove stones. PAST MEDICAL HISTORY: Prostate cancer, status post cryotherapy currently on Casodex 50 mg a day and Eligard for biochemical recurrence of the cancer. Asthma. Congestive heart failure. Coronary artery disease. Hypertension. Lung cancer. CURRENT MEDICATIONS: Documented on the chart. PAST SURGICAL HISTORY: Prostate biopsies, cryotherapy, cholecystectomy, skin cancer removal, and coronary artery stent placement. SOCIAL HISTORY: No current tobacco or alcohol use. ALLERGIES: He is allergic to donepezil and IV contrast. REVIEW OF SYSTEMS: He states his lung cancer is not being treated at present, and will be recheck in 6 months. He states he has had some abdominal pains, but nothing that caused concern. He has had normal bowel movements with no blood in the stool. There is no history of diabetes, strokes, or seizures. He does have some dementia. PHYSICAL EXAMINATION: General: A mildly obese age apparent normally developed white male who is cooperative. HEENT: Normal for age. Lungs: Clear. Cardiovascular: Regular rate and rhythm. Abdomen: Protuberant and soft. Some direct tenderness in the right lower quadrant but no guarding or rebound. Normal bowel sounds. Back: Mild CVA tenderness on the right, left side is normal. : Normal male. Both testes are down, but very small consistent with Eligard therapy. Rectal: Deferred. Extremities: No clubbing, cyanosis, or edema. Neurologic: No focal deficits. LABORATORY EVALUATION: He has a white count of 8.15, hemoglobin 15.8, hematocrit of 48, and platelets are 187,000. Serum electrolytes are normal. BUN [address] stone search reveals an 8 mm right distal ureteral stone with moderate hydroureteronephrosis. There is a partial small bowel obstruction. IMPRESSION: Patient with multiple medical problems and prostate cancer with a small right renal stone and an obstructing right distal ureteral stone. PLAN: Cystoscopic exam, right ureteroscopy, laser lithotripsy of the stone basket extraction of fragments, and placement of a right double-J stent. The planned procedure, benefits versus risks, and possible complications, including, but not limited to, bleeding, infection, not being able to remove the stone, need for further stone surgery was discussed. The patient and daughter seemed to understand and desired to proceed. cc: MD King Adame MD
[2019-06-01 07:31] LABS: BASO# 0.01 X1000 (0.0-0.2); BASO% 0.1 % (0.0-0.8); EOS# 0.04 X1000 (0.0-0.7); EOS% 0.4 % (0.0-10.0); HEMATOCRIT 43.4 % (42.0-52.0); HEMOGLOBIN 14.1 g/dL (14.0-18.0); IMM GRAN# 0.02 X1000 (0.0-0.04); IMM GRAN% 0.2 % (0.0-0.5); LYMPH# 1.09 X1000 (1.2-3.4); MCH 31.4 PG (27-31); MCHC 32.5 g/dL (33-37); MCV 96.7 FL (81-99); MONO# 1.11 X1000 (0.11-0.59); MONO% 11.2 % (1.7-9.3); MPV 11.4 FL (7.4-10.4); NEUT# 7.62 X1000 (1.4-6.5); NEUT% 77.1 % (42.2-75.2); PLT 182 X1000 (130-400); RBC 4.49 XMIL (4.7-6.1); RDW 13.6 % (11.5-14.5); WBC 9.89 X1000 (4.8-10.8)
[2019-06-01] MEDS: DUONEB (A & A) INH SCH ×5 (07:50→23:12)
[2019-06-01 07:58] LABS: AGAP 10; ALB/GLOB RATIO 1.4; ALBUMIN 3.4 g/dL (3.5-5.0); ALKALINE PHOSPHATASE 96 U/L (32-122); BUN 14 mg/dL (8-22); CALCIUM 8.3 mg/dL (8.8-10.2); CHLORIDE 104 mmol/L (98-107); COSMO 281; CREATININE 0.8 mg/dL (0.7-1.2); ESTIMATED GFR > 60; GLUCOSE 122 mg/dL (70-104); GOT 12 U/L (10-34); GPT 10 U/L (10-44); POTASSIUM 4.4 mmol/L (3.5-5.1); SODIUM 140 mmol/L (136-145); TCO2 26 mmol/L (25-35); TOTAL BILIRUBIN 1.27 mg/dL (0.20-1.00); TOTAL PROTEIN 5.8 g/dL (6.3-8.3)
--- NOTE | 2019-06-01 08:39 | PROGRESS NOTE ---
DATE: 06/01/2019 SUBJECTIVE: Mr. Neil is doing fair. The patient vomited once after he came to the floor; it was greenish in color. No major abdominal pain. Denied any chest pain or palpitations. No high- grade fever or chills. No history suggestive of renal or ureteric colic . OBJECTIVE: Vital Signs: Vital signs noted. Neck: Neck is supple. No JVD. Lungs: Bibasilar crepitation. Heart: S1 and S2 heard; 2/6 systolic murmur at the apex. Abdomen: Soft, globular. Bowel sounds present. HEALTH EDITOR: Alert, awake, able to move all 4 limbs. PROBLEM LIST: 1. Right ureteric stone with obstructive uropathy. 2. Partial small bowel obstruction. 3. Advanced chronic obstructive pulmonary disease. Possible lung cancer. 4. History of prostate cancer. I am going to continue current treatment. Morning blood work result is pending. PLAN: Overall plan discussed with the patient and family. Appreciate Dr. Mullins help managing this patient. cc: King Armstrong MD
--- NOTE | 2019-06-01 09:51 | Diag Imaging Result Doc PS360 ---
EXAM: CHEST-1 VIEW 06/01/2019 HISTORY: sob TECHNIQUE: AP portable upright at 0922 COMMENT: There are bilateral pleural effusions. The inspiration is suboptimal. There may be interstitial pulmonary edema and bibasilar atelectasis. IMPRESSION: Bibasilar atelectasis and mild interstitial pulmonary edema. Electronically signed by Jacob Jha 06/01/2019 9:48 AM
--- NOTE | 2019-06-01 09:53 | Diag Imaging Result Doc PS360 ---
EXAM: KUB ABDOMEN 06/01/2019 HISTORY: follow up right ureteral stone TECHNIQUE: Portable KUB at 0926 COMMENT: There is a calcification present on the right in the pelvis which was not clearly identifiable on the previous study of 04/05/2018. This may represent the ureteral stone which is described in the history. Otherwise the appearance of the abdomen has not changed significantly. IMPRESSION: Apparent distal right ureteral stone. Stable right renal pelvic stone. Electronically signed by Jacob Jha 06/01/2019 9:51 AM
[2019-06-01] MEDS ORDERED: XYLOCAINE-MPF 2% ONE (16:05)
[2019-06-01] MEDS ORDERED: DIPRIVAN 1% ONE (16:05)
[2019-06-01] MEDS ORDERED: EPHEDRINE ONE (18:10)
[2019-06-01] MEDS ORDERED: ZOFRAN ONE (18:16)
[2019-06-01] MEDS: PROTONIX IV SCH (19:00)
--- NOTE | 2019-06-01 21:40 | OPERATIVE NOTE ---
PROCEDURE DATE: 06/01/2019 SURGEON: Arsenio Mullins MD. PREOPERATIVE DIAGNOSIS: Right distal ureteral stone with moderate obstruction. POSTOPERATIVE DIAGNOSIS: Right distal ureteral stone with moderate obstruction. PROCEDURE PERFORMED: Cystoscopic examination, right ureteroscopy, laser lithotripsy of stone, basket extraction of fragments, placement of right double-J stent. ANESTHESIA: General via laryngeal mask. FINDINGS: Cystoscopic exam: Urethra - greater than 21 Cypriot, without stricture. Prostate - coapting lateral lobes, elevated bladder neck, length approximately 4 cm. Bladder - normal ureteral orifices bilaterally. There were grade 1 to 2 trabeculations. No diverticula. No papillary lesions were noted. Right ureteroscopy revealed an 8 mm stone in the right distal ureter. Rectal exam revealed a prostate of about 50 g, smooth, and symmetric. INDICATION FOR PROCEDURE: This 79-year-old male, with history of renolithiasis, developed severe right flank pain. Evaluation revealed a right distal ureteral stone. DESCRIPTION OF PROCEDURE: After informed consent was obtained from the patient, and him receiving IV antibiotics, he was taken to the main OR cystoscopy room, placed in the supine position. General anesthesia via laryngeal mask was achieved. He was then placed in the low lithotomy position and prepped and draped in the usual sterile fashion for cystoscopic exam. A 21-Cypriot cystoscope was passed through the patient's urethra, prostate, and into the bladder with findings as noted above. A 0.035 ZIPwire was passed through the cystoscope, engaged the right ureteral orifice, advanced up into the kidney. The cystoscope was removed, leaving the ZIPwire in place to act as a safety wire. A 7-Cypriot Storz semi-rigid ureteroscope was advanced through the patient's urethra, prostate, and into the bladder. A 0.035 Sensor wire was advanced through the ureteroscope and into the ureter. The ureteroscope was advanced over the Sensor wire and beneath the ZIPwire up to the stone. The Sensor wire was removed. A 365 micron laser fiber was placed. The laser was set at 8 hertz and 8 friedman, and the stone was well fragmented. A total of 854 joules was used. A 4 wire Nitinol basket was placed and several passes were made to remove stone fragments. The larger of these was sent to Pathology for analysis. The ureteroscope was advanced up to the UPJ area and no further stones or fragments were visualized. The ureteroscope was removed. A 6-Cypriot, 26 cm double-J stent was passed over the ZIPwire and up into the kidney. The renal end was verified by fluoroscopic exam, bladder end directly visualized. Bladder was drained. Cystoscope was removed. Stent removal string was securely taped to the penile shaft. Rectal exam performed. He tolerated the procedure well. Estimated blood loss less than 1 mL. He was taken to the recovery room in good condition. cc: MD King Adame MD
[2019-06-02] MEDS: ULTRAM PO PRN (01:21)
[2019-06-02] MEDS ORDERED: LASIX IV ONE (07:08)
[2019-06-02 07:15] LABS: BASO# 0.01 X1000 (0.0-0.2); BASO% 0.2 % (0.0-0.8); EOS# 0.06 X1000 (0.0-0.7); EOS% 1.1 % (0.0-10.0); HEMATOCRIT 41.1 % (42.0-52.0); HEMOGLOBIN 13.1 g/dL (14.0-18.0); LYMPH# 0.77 X1000 (1.2-3.4); LYMPH% 14.4 % (20.5-51.1); MCH 31.1 PG (27-31); MCHC 31.9 g/dL (33-37); MCV 97.6 FL (81-99); MONO# 0.75 X1000 (0.11-0.59); MONO% 14.1 % (1.7-9.3); MPV 11.6 FL (7.4-10.4); NEUT# 3.74 X1000 (1.4-6.5); NEUT% 70.2 % (42.2-75.2); PLT 137 X1000 (130-400); RBC 4.21 XMIL (4.7-6.1); RDW 13.6 % (11.5-14.5); WBC 5.33 X1000 (4.8-10.8)
--- NOTE | 2019-06-02 07:37 | Diag Imaging Result Doc PS360 ---
EXAM: ABDOMEN FLAT/UPRIGHT 06/02/2019 HISTORY: sbo TECHNIQUE: Flat and upright abdomen COMMENT: There is an aorto iliac endograft. There is gas in the colon and small bowel. There are Gianturco coils in the pelvis on the right. There is a right ureteral stent which was not present on 06/01/2019. Compared to the previous study there is less small bowel dilatation. There is still some stool in the rectum. IMPRESSION: Ileus versus partial small bowel obstruction. Mild constipation. Right ureteral stent. Right nephrolithiasis. Electronically signed by Jacob Jha 06/02/2019 7:35 AM
[2019-06-02] MEDS ORDERED: NON-FORMULARY BULK MED INH SCH (07:45)
[2019-06-02 07:50] LABS: AGAP 12; ALB/GLOB RATIO 1.5; ALBUMIN 3.4 g/dL (3.5-5.0); ALKALINE PHOSPHATASE 90 U/L (32-122); BUN 12 mg/dL (8-22); CALCIUM 8.5 mg/dL (8.8-10.2); CHLORIDE 104 mmol/L (98-107); COSMO 283; CREATININE 0.8 mg/dL (0.7-1.2); ESTIMATED GFR > 60; GLUCOSE 104 mg/dL (70-104); GOT 10 U/L (10-34); GPT 7 U/L (10-44); LIPASE 9 U/L (13-60); MAGNESIUM 1.9 mg/dL (1.5-2.7); POTASSIUM 4.2 mmol/L (3.5-5.1); SODIUM 142 mmol/L (136-145); TCO2 26 mmol/L (25-35); TOTAL BILIRUBIN 0.79 mg/dL (0.20-1.00); TOTAL PROTEIN 5.7 g/dL (6.3-8.3)
[2019-06-02] MEDS: DUONEB (A & A) INH SCH ×5 (08:00→23:11)
--- NOTE | 2019-06-02 08:10 | PROGRESS NOTE ---
DATE: 06/02/2019 SUBJECTIVE: Mr. Neli is doing better. He denied any nausea or vomiting last night tolerating clear liquids well. No high-grade fever or chills. Does have cough with scanty sputum production. No typical chest pain or palpitations. The patient underwent cystoscopy, right ureteroscopy. Laser lithotripsy of the stone with basket extraction of fragments, and placement of right double-J stent. The patient tolerated the procedure well. The patient does have COPD and chronic cough. OBJECTIVE: Vital signs noted.Neck: Supple. No JVD. Lungs: Bibasilar crepitations. CVS: S1 and S2 heard. Abdomen: Soft. Globular. Bowel sounds present. Extremities: No cyanosis or clubbing. No acute DVT. DUPLIGRAPH OPERATOR: Alert, awake, and answering questions fairly well. ASSESSMENT AND PLAN: Overall, the patient is doing better. I am going to continue current treatment. Close observation. Follow morning labs. Encourage ambulation if clinical condition permits, we will plan discharging patient home soon. cc: King Armstrong MD
[2019-06-02] MEDS: ROCEPHIN 1 GM in NS 50 ML IV SCH (08:12)
[2019-06-02] MEDS: HUMALOG SUBQ SCH ×4 (08:13→20:15)
[2019-06-02] MEDS: CLINIMIX E 4.25%-5% SOLUTION 1,000 ML IV SCH (08:19)
--- NOTE | 2019-06-02 09:13 | Diag Imaging Result Doc PS360 ---
EXAM: FLUROSCOPY CYSTO 06/01/2019 HISTORY: RT URETRAL STONE REMOVAL AND STENT PLACMENT TECHNIQUE: Eight images COMMENT: Ureteroscopy and stent placement was performed on the right. There is an apparent large stone in the renal pelvis on the right. No contrast was administered. IMPRESSION: Right ureteral stent placement. Electronically signed by Jacob Jha 06/02/2019 9:10 AM
[2019-06-02] MEDS: CASODEX PO SCH (10:36)
[2019-06-02] MEDS: LOPRESSOR PO SCH ×2 (10:37→20:10)
[2019-06-02] MEDS: FOLIC ACID PO SCH (10:37)
[2019-06-02] MEDS: NAMENDA PO SCH ×2 (10:37→20:10)
[2019-06-02] MEDS: ASPIRIN EC PO SCH (10:37)
[2019-06-02] MEDS: PROTONIX IV SCH (18:21)
[2019-06-03] MEDS: CLINIMIX E 4.25%-5% SOLUTION 1,000 ML IV SCH ×3 (01:21→09:56)
[2019-06-03] MEDS: HUMALOG SUBQ SCH ×4 (06:16→21:25)
[2019-06-03] MEDS: ROCEPHIN 1 GM in NS 50 ML IV SCH (06:16)
[2019-06-03] MEDS: DUONEB (A & A) INH SCH ×5 (07:37→22:59)
[2019-06-03] MEDS: FOLIC ACID PO SCH (09:45)
[2019-06-03] MEDS: ASPIRIN EC PO SCH (09:45)
[2019-06-03] MEDS: LOPRESSOR PO SCH ×2 (09:45→21:26)
[2019-06-03] MEDS: NAMENDA PO SCH ×2 (09:45→21:26)
[2019-06-03] MEDS: CASODEX PO SCH (09:46)
--- NOTE | 2019-06-03 16:48 | PROGRESS NOTE ---
DATE: 06/03/2019 SUBJECTIVE: A 79-year-old, white gentleman, who was admitted to the hospital on 06/02/2019, by Dr. Armstrong for right-sided flank pain. The patient was found to have right distal ureteral obstruction with moderate hydronephrosis. The patient was seen by Dr. Mullins, who did a cystoscopy, right ureteroscopy, laser lithotripsy of the stone with extraction, placement of right double-J stent. The patient was sitting out of the bed in the recliner. Family was at bedside. According to the family, he was confused last night. He is not getting home medications. I spoke to the daughter on the phone. I used to see him before, well known from prior office visits. Interval history was reviewed. PAST MEDICAL HISTORY: Reviewed. PAST SURGICAL HISTORY: Reviewed. MEDICINES: Reviewed. ALLERGIES: Reported to iodinated contrast media. PHYSICAL EXAMINATION: Temperature is 97.8 degrees, pulse 69, blood pressure is 150/81, 92% on nasal cannula. He has plethoric face.Neck: Supple. Chest: Clear. Heart sounds are regular. Belly is soft, tender. No peripheral edema. No obvious deficits. INVESTIGATIONS: CBC was normal yesterday. SMA 7 is normal. Urinalysis positive for blood. Blood cultures are negative. X-ray was ordered yesterday, ileus versus small bowel obstruction. Right ureteral stent, right kidney stones, diverticulosis coli. ASSESSMENT AND PLAN: 1. Altered mental status, metabolic encephalopathy. (A.) We will hold the discharge. (B.) IV Clinimix. 2. Double-J stent extraction of the stone. 3. Partial small bowel obstruction. We will continue to monitor bowel movements. We will repeat the x-ray and blood tests in the morning. The patient is receiving IV ceftriaxone. We will restart the home medications. 4. History of prostate cancer. He is on Casodex. 5. Chronic obstructive pulmonary disease with sleep apnea. On Trelegy. 6. Dementia. On Namenda. 7. Vitamin D deficiency. On replacement therapy. 8. Discussed with the daughter on the phone. We will repeat the x-rays tomorrow, out of the bed with physical therapy, and will follow up. LEVEL OF DOCUMENTATION: 35 minutes. cc: MD King Michael MD
[2019-06-03] MEDS: PROTONIX IV SCH (18:28)
[2019-06-04] MEDS: CLINIMIX E 4.25%-5% SOLUTION 1,000 ML IV SCH (00:32)
[2019-06-04] MEDS: ULTRAM PO PRN (03:46)
[2019-06-04] MEDS: HUMALOG SUBQ SCH ×2 (06:23→11:39)
[2019-06-04] MEDS: ROCEPHIN 1 GM in NS 50 ML IV SCH (06:38)
[2019-06-04 06:55] LABS: HEMATOCRIT 41.5 % (42.0-52.0); HEMOGLOBIN 13.4 g/dL (14.0-18.0); MCH 31.3 PG (27-31); MCHC 32.3 g/dL (33-37); MPV 11.9 FL (7.4-10.4); RBC 4.28 XMIL (4.7-6.1); RDW 13.5 % (11.5-14.5); WBC 5.48 X1000 (4.8-10.8)
[2019-06-04 07:28] LABS: AGAP 10; BUN 18 mg/dL (8-22); CALCIUM 7.4 mg/dL (8.8-10.2); CHLORIDE 95 mmol/L (98-107); COSMO 271; CREATININE 0.7 mg/dL (0.7-1.2); ESTIMATED GFR > 60; GLUCOSE 115 mg/dL (70-104); POTASSIUM 4.1 mmol/L (3.5-5.1); SODIUM 134 mmol/L (136-145); TCO2 29 mmol/L (25-35)
[2019-06-04] MEDS: DUONEB (A & A) INH SCH ×2 (07:53→12:09)
[2019-06-04] MEDS: FOLIC ACID PO SCH (08:49)
[2019-06-04] MEDS: CASODEX PO SCH (08:49)
[2019-06-04] MEDS: NAMENDA PO SCH (08:49)
[2019-06-04] MEDS: LOPRESSOR PO SCH (08:50)
[2019-06-04] MEDS: ASPIRIN EC PO SCH (08:50)
[2019-06-04] MEDS ORDERED: VITAMIN D PO SCH (09:00)
[2019-06-04] MEDS ORDERED: ASPIRIN EC PO SCH (09:00)
--- NOTE | 2019-06-04 11:18 | Diag Imaging Result Doc PS360 ---
EXAM: ABDOMEN FLAT/UPRIGHT HISTORY: pain TECHNIQUE: Three views COMPARISON: 06/02/2019 FINDINGS: There is a right-sided ureteral stent. There are multiple surgical clips in the right abdomen and overlying the right hip. Aortic iliac graft as well as coils overlying the right side of the sacrum. No organomegaly. There is stool throughout the colon. Prominent atherosclerosis. There are multiple pelvic phleboliths. IMPRESSION: Constipation. Electronically signed by Tavo Chang 06/04/2019 11:16 AM
[2019-06-04 12:23] VITALS: BP 122/74
[2019-06-04] MEDS ORDERED: DULCOLAX PR ONE (12:43)
--- NOTE | 2019-06-04 16:09 | DISCHARGE SUMMARY ---
ADMISSION DATE: 05/31/2019 DISCHARGE DATE: 06/04/2019 DISCHARGING DIAGNOSIS: Right-sided flank pain due to distal ureteral obstruction with hydronephrosis. SECONDARY DIAGNOSES: 1. Ileus due to constipation. 2. Chronic obstructive pulmonary disease/lung cancer. 3. History of prostate cancer. 4. Mild cognitive impairment. 5. Osteoarthritis. 6. Sleep apnea. 7. 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 8. History of abdominal aneurysm, status post endovascular graft by Dr. Flores. CONSULTS: Dr. Mullins. PROCEDURES: Cystoscopy with right ureteroscopy, laser lithotripsy of stone, basket extraction of the fragments, placement of right double-J stent. BRIEF HISTORY: Please see the H and P that was done by Dr. Armstrong. In brief, he is a 79-year- old, white male with the above problems who was admitted to the hospital with right flank pain due to distal ureteral obstruction. The patient was given IV fluids, IV antibiotics, pain management. Urology consult was obtained. The patient had above procedures. Postoperative course was uneventful except ileus. The patient was given Dulcolax and MiraLAX. Eating well. Findings discussed with the patient and family, and discharged home in a stable condition. LABS: CBC: White cell count 5.4, hematocrit 41.5, platelets 140,000. Sodium 134, potassium 4.1, BUN 18, creatinine 0.7, glucose 136. Blood cultures were negative. RADIOLOGY PROCEDURES: CT worsening of right hydronephrosis with distal ureterolithiasis, diverticulosis coli. Chest x-ray was stable. DISCHARGE INSTRUCTIONS: 1. Aspirin 81 mg daily, Casodex 50 mg daily, metoprolol 25 p.o. b.i.d., Namenda 10 p.o. b.i.d., folic acid 1 mg daily, potassium 10 mEq daily, vitamin D3 with 2000 units daily, Trelegy 1 puff daily, Lasix 40 mg as needed, MiraLAX 17 mg daily. 2. Follow up with Dr. Mullins in 2 weeks. Follow up with Dr. Armstrong next week for maintenance care with underlying medical problems. cc: MD King Michael MD William E. Hughes, MD MTDD
== END 2019-06-04 14:58 | disposition home health service (06) | DRG 660 ==
LOC: ED 10:43 → EDIPHOLD 10:43 → 3N 18:29
PROVIDERS: ADMIT Internal Medicine; ATTEND Internal Medicine

== ENCOUNTER 2019-10-04 01:00 | Inpatient (IN) ==
[2019-10-04 02:02] LABS: BASO# 0.01 X1000 (0.0-0.2); BASO% 0.2 % (0.0-0.8); EOS# 0.08 X1000 (0.0-0.7); EOS% 1.2 % (0.0-10.0); HEMATOCRIT 42.1 % (42.0-52.0); HEMOGLOBIN 13.4 g/dL (14.0-18.0); LYMPH% 25.8 % (20.5-51.1); MCH 30.2 PG (27-31); MCHC 31.8 g/dL (33-37); MCV 94.8 FL (81-99); MONO# 0.99 X1000 (0.11-0.59); MPV 11.8 FL (7.4-10.4); NEUT# 3.82 X1000 (1.4-6.5); NEUT% 57.8 % (42.2-75.2); PLT 149 X1000 (130-400); RBC 4.44 XMIL (4.7-6.1); RDW 14.2 % (11.5-14.5)
[2019-10-04 02:10] LABS: INR 1.08; PROTIME 14.2 Seconds (11.0-16.0)
[2019-10-04 02:11] LABS: PTT 28.1 Seconds (22.3-41.8)
[2019-10-04 02:20] LABS: AGAP 10; ALB/GLOB RATIO 1.3; ALBUMIN 3.3 g/dL (3.5-5.0); ALKALINE PHOSPHATASE 89 U/L (32-122); BUN 19 mg/dL (8-22); CALCIUM 8.6 mg/dL (8.8-10.2); CHLORIDE 102 mmol/L (98-107); COSMO 287; CREATININE 0.9 mg/dL (0.7-1.2); ESTIMATED GFR > 60; GLUCOSE 124 mg/dL (70-104); GOT 11 U/L (10-34); GPT 9 U/L (10-44); POTASSIUM 3.9 mmol/L (3.5-5.1); SODIUM 142 mmol/L (136-145); TCO2 30 mmol/L (25-35); TOTAL BILIRUBIN 0.53 mg/dL (0.20-1.00); TOTAL PROTEIN 5.9 g/dL (6.3-8.3)
[2019-10-04] MEDS ORDERED: SOLU-MEDROL IV ONE (03:59)
[2019-10-04] MEDS ORDERED: DUONEB (A & A) INH ONE (03:59)
--- NOTE | 2019-10-04 04:01 | PROVIDER DOCUMENTATION ---
This chart was entered by Rachel Pardo Scribe, acting as scribe for Ray Cedeño MD. HPI-Respiratory General - General Chief Complaint: Shortness of Breath Stated Complaint: sob Time Seen by Provider: 10/04/19 01:33 Source: patient Allergies/Adverse Reactions: Patient Allergies Allergy/AdvReac Type Severity Reaction Status Date / Time No Known Allergies Allergy Verified 10/04/19 04:32 Home Medications: Home Medication List Medication Instructions Recorded Confirmed Last Taken Type Aspirin [Aspirin EC] 81 mg PO DAILY 04/05/18 10/04/19 10/04/19 History Bicalutamide [Casodex] 50 mg PO DAILY 04/05/18 10/04/19 10/04/19 History Memantine HCl [Namenda] 10 mg PO BID 04/05/18 10/04/19 10/04/19 History Folic Acid 1 mg PO DAILY #30 tablet 04/08/18 10/04/19 10/03/19 Rx Meclizine [Antivert] 12.5 mg PO TID PRN #15 tablet 04/08/18 10/04/19 09/04/19 Rx Acetaminophen [Tylenol] 650 mg PO Q6H PRN PRN tablet 06/06/18 10/04/19 06/05/19 Rx Potassium Chloride [Klor-Con 10] 10 meq PO DAILY #30 tablet.er 06/06/18 10/04/19 10/03/19 Rx Cholecalciferol (Vitamin D3) 2,000 unit PO DAILY 05/31/19 10/04/19 10/04/19 History [D-2000] Fluticasone/Umeclidin/Vilanter 100 mcg INHALATION DAILY 05/31/19 10/04/19 10/04/19 History [Trelegy Ellipta 100-62.5-25] Polyethylene Glycol 3350 [Miralax] 17 gm PO DIRECTED 10/04/19 10/04/19 09/30/19 History - History of Present Illness-Resp Nature of Presenting Problem: 79 yowm c/o SOB starting this evening. NC in place in er. pt is on 85%. pt is poor hx. pt was seen on 3-8 and admitted to [facility] for PNU and aneurysm. 79 yowm presents to er w/family w/cc fall today at home, [place]son, and trouble ambulating. daughter sts pt was at [facility] around 1300 w/family and having trouble getting into vehicle, was slumped over to left side. this evening, pt grandson went into home and found pt had fallen into clothes baskets. family sts at 1800 yest, took pt to eat and noticed he was getting a cough and rhinorrhea. pt grandson was dx w/flu b recently. family lives w/pt. hx of prostate and lung cancer, copd and htn. on o2 at home 15/02. pt has an aneurysm on brain, followed by Dr. Dailey in [facility] at [facility]. Severity in ED: reports: mild Onset/Duration: reports: this evening Timing: reports: still present Current Respiratory Medication Therapy: Initiated other Modifying Factors: improves with: nothing Review of Systems - Adult - REVIEW OF SYSTEMS - ADULT Constitutional: reports: no symptoms reported. denies: fever, fatique, night sw eats Eyes: reports: no symptoms reported Ears, Nose, Mouth & Throat: reports: no symptoms reported Cardiovascular: reports: no symptoms reported Respiratory: reports: see HPI, shortness of breath. denies: dyspnea on exertion, excessive sputum production, wheezing Gastrointestinal: reports: no symptoms reported Genitourinary: reports: no symptoms reported Musculoskeletal: reports: no symptoms reported Integumentary: reports: no symptoms reported Neurological: reports: no symptoms reported Psychiatric: reports: no symptoms reported Endocrine: reports: no symptoms reported Hematologic/Lymphatic: reports: no symptoms reported Allergic/Immunologic: reports: no symptoms reported All Other Systems: Reviewed and Negative Past History - Adult - PAST MEDICAL HISTORY-ADULT Review of Records: reports: Nursing Assessment Review, Medications Reviewed, Social history reviewed & non-contributory. Major Childhood Illnesses: reports: denies history Cardiovascular: reports: HTN, other (AAA 7.7 w/ stent) Respiratory: reports: COPD, cancer, sleep apnea Gastrointestinal: reports: denies history Obstetrical/Gynecological: reports: denies history Genitourinary: reports: kidney stones, prostate cancer Musculoskeletal: reports: denies history Neurological: reports: other (aneurysm) Endocrine/Immune: reports: denies history Other Conditions: reports: denies history - PRIOR SURGERIES/PROCEDURES Surgical/Procedure History: reports: cardiac stent, hernia repair, other (turp) - IMMUNIZATION STATUS Childhood Immunizations: See Nurse Assessment Flu Vaccine: UTD - FAMILY HISTORY Family History: reviewed, not pertinent - SOCIAL HISTORY Smoking: other (former smoker) Provider spent 3-5 mins advising pt. on dangers of tobacco.: Discussed manners to quit use, and f/u contacts for add'l counseling. Substance Use: none/never Physical Exam-General - PHYSICAL EXAM-ADULT Initial Vital Signs Reviewed: Yes - CONSTITUTIONAL General Appearance: appears well, alert, no apparent distress. negative: anxious, slow to respond, obtunded - EYES Eyes: PERRL/EOMI - HEAD, EARS, NOSE, MOUTH & THROAT HENMT: normocephalic/atraumatic, moist mucous membranes - NECK Neck: non-tender, full range of motion, supple, normal inspection - RESPIRATORY Respiratory: chest non-tender, lungs clear, normal breath sounds, no pleuratic chest pain, no respiratory distress, no accessory muscle use, other (hypoxic). negative: respiratory distress, decreased breath sounds, accessory muscle use, wheezing - CARDIOVASCULAR Cardiovascular: normal peripheral pulses, regular rate, rhythm - GASTROINTESTINAL (ABDOMEN) Abdominal Exam: normal bowel sounds, non tender, soft - MUSCULOSKELETAL Back Exam: normal inspection Extremity: normal range of motion, non-tender, normal inspection - SKIN Integumentary: normal color, normal turgor, warm/dry - NEUROLOGIC Neurologic: grossly normal, no motor/sensory deficits - PSYCHIATRIC Psych/Mental Status: normal mood/affect, normal thought content, normal thought process, oriented x 3 - HEART Score HEART Score: History: Slightly Suspicious HEART Score: ECG: Non-Specific Repolarization Disturbance/LBBB/PM HEART Score: Age: > or = 65 Years HEART Score: Risk Factors for Atherosclerotic Disease: 1 or 2 Risk Factors HEART Score: Troponin: < or = Normal Limit Total HEART Score:: 4 Progress - PLAN OF CARE/RESULTS Progress/Plan/Lab Results: Vital Signs - 8 hr 10/04/19 01:25 10/04/19 04:13 Temperature 98.0 F Pulse Rate 84 83 Respiratory Rate 18 15 Blood Pressure 134/58 O2 Sat by Pulse Oximetry 92 L 10/04/19 01:30 Influenza Screen - Final Nasopharyngeal Laboratory Results - last 24 hr 10/04/19 10/04/19 10/04/19 01:30 01:30 01:30 WBC RBC Hgb Hct MCV MCH MCHC RDW Std Deviation Plt Count MPV Immature Gran % (Auto) Neut % (Auto) Lymph % (Auto) Tyrrell % (Auto) Eos % (Auto) Baso % (Auto) Immature Gran # (Auto) Neut # (Auto) Lymph # (Auto) Tyrrell # (Auto) Eos # (Auto) Baso # (Auto) PT INR PTT (Actin FS) Sodium 142 Potassium 3.9 Chloride 102 Carbon Dioxide 30 Anion Gap 10 BUN 19 Creatinine 0.9 Estimated GFR/1.73 m2 > 60 BUN/Creatinine Ratio 21 Glucose 124 H Calculated Osmolality 287 Calcium 8.6 L Total Bilirubin 0.53 AST 11 ALT 9 L Alkaline Phosphatase 89 Troponin T High Sens 10 Oej-Q-Ogjhynyrrdu Pept 300 Total Protein 5.9 L Albumin 3.3 L Globulin 2.6 Albumin/Globulin Ratio 1.3 Plasma Lactate 10/04/19 10/04/19 10/04/19 01:30 01:30 01:30 WBC 6.60 RBC 4.44 L Hgb 13.4 L Hct 42.1 MCV 94.8 MCH 30.2 MCHC 31.8 L RDW Std Deviation 14.2 Plt Count 149 MPV 11.8 H Immature Gran % (Auto) 0.0 Neut % (Auto) 57.8 Lymph % (Auto) 25.8 Tyrrell % (Auto) 15.0 H Eos % (Auto) 1.2 Baso % (Auto) 0.2 Immature Gran # (Auto) 0.00 Neut # (Auto) 3.82 Lymph # (Auto) 1.70 Tyrrell # (Auto) 0.99 H Eos # (Auto) 0.08 Baso # (Auto) 0.01 PT 14.2 INR 1.08 PTT (Actin FS) 28.1 Sodium Potassium Chloride Carbon Dioxide Anion Gap BUN Creatinine Estimated GFR/1.73 m2 BUN/Creatinine Ratio Glucose Calculated Osmolality Calcium Total Bilirubin AST ALT Alkaline Phosphatase Troponin T High Sens Cxy-I-Pnzddyrqied Pept Total Protein Albumin Globulin Albumin/Globulin Ratio Plasma Lactate 0.9 Orders Category Date Time Status NEWS Score 2-4:Order NEWS Lactate Series NOW Care 10/04/19 01:31 Active CHEST-1 VIEW [RAD] Stat Exams 10/04/19 01:33 Taken BLOOD CULTURE [BLDCUL] Stat Lab 10/04/19 01:25 Results CBC WITH ELECTRONIC DIFF [HEME] Stat Lab 10/04/19 01:30 Completed COMPREHENSIVE METABOLIC PANEL [CHEM] Stat Lab 10/04/19 01:30 Completed INFLUENZA SCREEN A/B Stat Lab 10/04/19 01:30 Completed LACTATE, PLASMA [CHEM] Lab 10/04/19 05:45 Uncollected LACTATE, PLASMA [CHEM] Lab 10/04/19 08:45 Uncollected LACTATE, PLASMA [CHEM] Q3H Lab 10/04/19 01:30 Completed PRO B-NATRIURETIC PEPTIDE Stat Lab 10/04/19 01:30 Completed PROTIME WITH INR [COAG] Stat Lab 10/04/19 01:30 Completed PTT [COAG] Stat Lab 10/04/19 01:30 Completed TROPONIN T HIGH SENSITIVITY Stat Lab 10/04/19 01:30 Completed Albuterol 2.5MG/Ipratrop 0.5MG [Duoneb (A & A)] Med 10/04/19 03:59 Discontinued 3 ml INH NOW ONE Methylprednisolone Sod Succ [Solu-Medrol] Med 10/04/19 03:59 Discontinued 125 mg IV NOW ONE Rocephin 1 gm/Ns IV Now Med 10/04/19 04:46 Ordered CefTRIAXONE [Rocephin] 1 gm 0.9% Sodium Chloride Inj [Ns] 50 ml IV NOW Aerosol Treatments Routine Oth 10/04/19 03:59 Active Aerosol Treatments Stat Oth 10/04/19 03:59 Active EKG [EKG] Stat Ther 10/04/19 01:33 Draft Result Diagrams: 10/04/19 01:30 10/04/19 01:30 - EKG 1 Time of EKG reading by physician:: 01:15 EKG Read and Signed by:: Ray Cedeño (bifascicular block ) EKG Interpretation (*Must complete 3 of following elements*): Abnormal Rate: 90 (left anterior fascicular block) Rhythm: Sr w/ freq PVCs [place]: normal QRS: RBB, LVH WI Interval: normal ST Wave: normal Comments: cannot rule out septal infarct, age undetermined - XRAY 1 XRAY Study: Chest Impression: Abnormal, See EMR Report (basilar opacities and left pleural effusion) - CONSULTS/PCP/HOSPITALIST Notification #1 *Consult/PCP/Hospitalist*: DR Beavers Time Discussed: 03:57 Reason/Comments: asked to notify Dr Armstrong at 7am Consult Disposition: Admit Departure - Departure Date of Disposition Decision: 10/04/19 Time of Disposition Decision: 03:58 DIAGNOSIS: COPD exacerbation, Pneumonia, Pleural effusion Disposition: ADMITTED INPATIENT 09 Certified Medical Emergency: Emergent Condition: Fair Referrals and Follow-Ups: King Armstrong MD [Primary Care Provider] - - Critical Care Note This patient required my direct & personal management of CC.: No Attestation - Physician/ FARHAT Attestation Patient care was provided by Advanced Practice Provider:: No The physician spent face to face time with patient:: Yes Advanced Practice Provider documentation review:: Supervising physician onsite and consulted in the evaluation and care of this patient. The physician did have a face to face encounter with the patient. This chart was documented by the indicated scribe, (Rachel Pardo Scribe) and accurately reflects the services I performed and decisions made by me, Ray Cedeño MD, as attested by the provider's signature.
--- NOTE | 2019-10-04 04:30 | EKG Report ---
Test Performed on : 10/04/2019 01:15:35 AM Test Reason : sob Blood Pressure : / mmHG Vent. Rate : 090 BPM Atrial Rate : 090 BPM P-R Int : 180 ms QRS Dur : 138 ms QT Int : 384 ms P-R-T Axes : 025 -48 020 degrees QTc Int : 469 ms Sinus rhythm. with frequent premature ventricular complexes. Right bundle branch block Left anterior fascicular block Bifascicular block Voltage criteria for left ventricular hypertrophy Cannot rule out Septal infarct (cited on or before 30-DEC-2017) Abnormal ECG When compared with ECG of 01-OCT-2019 19:31, (Unconfirmed) Questionable change in initial forces of Septal leads Unconfirmed Result
[2019-10-04] MEDS ORDERED: ROCEPHIN 1 GM in NS 50 ML IV ONE (04:46)
--- NOTE | 2019-10-04 05:23 | Diag Imaging Result Doc PS360 ---
EXAM: CHEST-1 VIEW HISTORY: sob TECHNIQUE: Single view COMPARISON: 10/01/2019 FINDINGS: Poor inspiratory effort. No cardiomegaly. There is basilar atelectasis and there may be underlying infiltrates. Small pleural effusions. Vascular prominence has decreased. IMPRESSION: Mild interval improvement Electronically signed by Tavo Chang 10/04/2019 5:21 AM
--- NOTE | 2019-10-04 06:48 | HISTORY AND PHYSICAL ---
PRIMARY CARE PHYSICIAN: Dr. Armstrong. CHIEF COMPLAINT: Shortness of breath. HISTORY OF PRESENTING ILLNESS: A 79-year-old male with a history of dementia, hypertension, CHF, COPD, lung mass, who had presented to emergency department due to the patient having shortness of breath for the past several days. He was apparently on home oxygen and family tried to increase oxygen; however, he did not have any improvement. He was brought to the emergency department and he had evaluation done here, which showed that possibly he had pneumonia. Due to his presenting symptoms he will require admission for further management. As per family, he was desatting down to around 80s or so. At time of my examination, patient was somewhat sleepy. However, he denied any headache, fever, chills, chest pain, or any weight changes, and most of the history is obtained also from family members. PAST MEDICAL HISTORY: Includes dementia, hypertension, CHF, COPD on home oxygen, lung mass, bibasilar artery aneurysm, AAA. PAST SURGICAL HISTORY: AAA stent, cholecystectomy. ALLERGIES TO: No known drug allergies. CURRENT MEDICATIONS: Include 1. Aspirin 81 mg p.o. daily. 2. Casodex 50 mg p.o. daily. 3. Folic acid 1 mg p.o. daily. 4. Meclizine 12.5 mg p.o. t.i.d. 5. Namenda 10 mg p.o. b.i.d. 6. Potassium 10 mEq p.o. daily. SOCIAL HISTORY: He is a former smoker. No history of alcohol or illicit drug use. FAMILY HISTORY: No history of coronary disease. REVIEW OF SYSTEMS: Fourteen point review of systems is listed as in HPI. Other systems negative. PHYSICAL EXAMINATION: GENERAL: The patient is resting comfortably. However he is sleepy. VITAL SIGNS: Temperature 98 degrees, pulse 84, respiration 18, blood pressure 134/58. He is saturating 92%. HEENT: Atraumatic, normocephalic. Extraocular movements intact. NECK: No masses. CHEST: Bibasilar rales. CARDIOVASCULAR: Regular rate and rhythm. ABDOMEN: Soft. Positive bowel sounds. EXTREMITIES: Trace edema. NEUROLOGIC: He is awake, alert, oriented x2. GENITOURINARY: No bladder distention. SKIN: Warm. LABORATORIES AND STUDIES: WBC 6.60, hemoglobin 13.4, hematocrit 42.1, platelets 149,000. Sodium 142, potassium 3.9, chloride 102, CO2 is 30, BUN is 19, creatinine 0.9, glucose 124. Chest x-ray shows bibasilar atelectasis and there to be underlying infiltrates. ASSESSMENT: This is a 79-year-old male with a history of dementia, hypertension, congestive heart failure, lung mass, COPD, who had presented to emergency department with several days history of shortness of breath. Apparently family states that he was desatting to 80s. He was put on supplemental oxygen in the ED and he had imaging done which did show the possibility of pneumonia. Subsequently he will require admission for further management assessment. 1. Probable pneumonia. 2. Chronic obstructive pulmonary disease exacerbation. 3. Congestive heart failure. 4. Lung cancer. 5. Hypertension. PLAN: 1. We will admit patient to medical floor with telemetry. 2. We will continue with DuoNeb. 3. We will check blood cultures. Start patient on IV antibiotics. 4. Continue with gentle diuresis with Lasix. 5. We will monitor blood pressure closely. 6. Put patient on DVT prophylaxis with SCD. 7. We will continue to follow, reassess, make further recommendation based on patient's clinical course. cc: MD King Stoner MD
[2019-10-04] MEDS ORDERED: ZOFRAN IV PRN (07:18)
[2019-10-04] MEDS ORDERED: ANTIVERT PO PRN (07:18)
[2019-10-04] MEDS: DUONEB (A & A) INH SCH ×5 (08:00→23:10)
[2019-10-04] MEDS: LEVAQUIN 500 MG/D5W 500 MG/100 ML IVPB IV SCH (08:18)
[2019-10-04] MEDS: ASPIRIN EC PO SCH (08:18)
[2019-10-04] MEDS: FOLIC ACID PO SCH (08:19)
[2019-10-04] MEDS: NAMENDA PO SCH ×2 (08:19→21:52)
[2019-10-04] MEDS: CASODEX PO SCH (08:19)
[2019-10-04] MEDS: VITAMIN D PO SCH (08:19)
[2019-10-04 09:34] LABS: AGAP 9; BUN 16 mg/dL (8-22); CALCIUM 8.2 mg/dL (8.8-10.2); CHLORIDE 105 mmol/L (98-107); COSMO 287; CREATININE 0.7 mg/dL (0.7-1.2); ESTIMATED GFR > 60; GLUCOSE 182 mg/dL (70-104); SODIUM 141 mmol/L (136-145); TCO2 27 mmol/L (25-35)
[2019-10-04 09:42] LABS: EOS# 0.02 X1000 (0.0-0.7); EOS% 0.5 % (0.0-10.0); HEMATOCRIT 41.4 % (42.0-52.0); HEMOGLOBIN 13.2 g/dL (14.0-18.0); IMM GRAN# 0.02 X1000 (0.0-0.04); IMM GRAN% 0.5 % (0.0-0.5); LYMPH# 0.49 X1000 (1.2-3.4); LYMPH% 13.4 % (20.5-51.1); MCH 30.6 PG (27-31); MCHC 31.9 g/dL (33-37); MCV 96.1 FL (81-99); MONO# 0.12 X1000 (0.11-0.59); MONO% 3.3 % (1.7-9.3); MPV 11.4 FL (7.4-10.4); NEUT# 3.02 X1000 (1.4-6.5); NEUT% 82.3 % (42.2-75.2); PLT 117 X1000 (130-400); RBC 4.31 XMIL (4.7-6.1); RDW 14.3 % (11.5-14.5); WBC 3.67 X1000 (4.8-10.8)
[2019-10-04] MEDS: SOLU-MEDROL IV SCH (21:53)
[2019-10-04] MEDS: LOVENOX SUBQ SCH (21:53)
--- NOTE | 2019-10-04 22:06 | PROGRESS NOTE ---
DATE: 10/04/2019 SUBJECTIVE: I evaluated the patient in the morning in the ER. A 79-year-old white gentleman, admitted with hypoxemia and known case of COPD, on home oxygen and nebulizer treatment. The patient's O2 saturation was staying low. The patient also had cough and chest congestion. Patient evaluated by hospitalist. Admission history and physical noted. Impression was probable pneumonia, COPD exacerbation. The patient had history of possible lung cancer, hypertension, history of prostate cancer. OBJECTIVE: I evaluated the patient. Lungs: Bibasilar crepitations, occasional wheezing. CVS: S1 and S2 heard. Abdomen soft, globular. Bowel sounds present. No acute DVT. LAND USE PLANNER: Alert, awake, answering questions fairly well. PLAN: Lab and medication noted. We will continue IV antibiotics, pulmonary toilet, bronchodilator treatment. Overall plan discussed with patient and daughter. They are in agreement. cc: King Armstrong MD
[2019-10-05] MEDS: DUONEB (A & A) INH SCH ×6 (03:10→23:10)
[2019-10-05] MEDS: ROCEPHIN 1 GM in NS 50 ML IV SCH (06:36)
[2019-10-05] MEDS: SOLU-MEDROL IV SCH ×3 (06:36→21:03)
--- NOTE | 2019-10-05 07:20 | PROGRESS NOTE ---
DATE: 10/05/2019 SUBJECTIVE: Mr. Neil is a 79-year-old, white gentleman with multiple medical problems, admitted with hypoxemia. The patient also had chest congestion, cough, shortness of breath. Daughter tried to increase his FiO2. O2 saturation was not getting any better. Brought to the emergency room, found to have possible pneumonia. The patient does have history of lung cancer, prostate cancer. Patient evaluated in the ER, admitted for further care. The patient is doing fair. He denied any typical chest pain or palpitations. The patient does have, at times, postural dizziness. Admission history and physical noted. OBJECTIVE: Vital Signs: Blood pressure 158/87, pulse 87, respirations 17, temperature 98.4 degrees. Neck: Supple. No JVD. Lungs: Bibasilar crepitations. Occasional wheezing. Cardiovascular: S1 and S2 heard. Abdomen: Soft, nontender. Bowel sounds present. CAPTAIN'S ASSISTANT: Alert, awake, able to move all 4 limbs. LABORATORY DATA: Ordered for today, results are pending. CONSIDERATION: The patient does have chronic obstructive pulmonary disease exacerbation, history suggestive of pneumonia, history of lung cancer, prostate cancer, hypoxemia, osteoarthritis, history of basilar artery aneurysm. PLAN: Will continue current treatment, close observation, fall precaution. Overall plan discussed with the patient and daughter, and they are in agreement. cc: King Armstrong MD
[2019-10-05 08:03] LABS: EOS# 0.01 X1000 (0.0-0.7); EOS% 0.2 % (0.0-10.0); HEMATOCRIT 41.5 % (42.0-52.0); HEMOGLOBIN 13.4 g/dL (14.0-18.0); HEMOGLOBIN A1C 5.4 % (4.8-6.0); LYMPH# 0.62 X1000 (1.2-3.4); LYMPH% 13.6 % (20.5-51.1); MCH 30.6 PG (27-31); MCHC 32.3 g/dL (33-37); MCV 94.7 FL (81-99); MONO# 0.45 X1000 (0.11-0.59); MONO% 9.9 % (1.7-9.3); MPV 11.7 FL (7.4-10.4); NEUT# 3.47 X1000 (1.4-6.5); NEUT% 76.3 % (42.2-75.2); PLT 148 X1000 (130-400); RBC 4.38 XMIL (4.7-6.1); RDW 13.7 % (11.5-14.5); WBC 4.55 X1000 (4.8-10.8)
[2019-10-05 08:21] LABS: AGAP 7; ALB/GLOB RATIO 1.4; ALBUMIN 3.4 g/dL (3.5-5.0); ALKALINE PHOSPHATASE 75 U/L (32-122); BUN 15 mg/dL (8-22); CALCIUM 8.9 mg/dL (8.8-10.2); CHLORIDE 104 mmol/L (98-107); COSMO 282; CREATININE 0.8 mg/dL (0.7-1.2); ESTIMATED GFR > 60; GLUCOSE 135 mg/dL (70-104); GOT 11 U/L (10-34); GPT 10 U/L (10-44); POTASSIUM 4.6 mmol/L (3.5-5.1); SODIUM 140 mmol/L (136-145); TCO2 29 mmol/L (25-35); TOTAL BILIRUBIN 0.49 mg/dL (0.20-1.00); TOTAL PROTEIN 5.8 g/dL (6.3-8.3)
[2019-10-05 08:52] LABS: FREE T4 1.19 ng/dL (0.93-1.70); TSH 0.28 uIUmL (0.27-4.20)
[2019-10-05] MEDS: PROTONIX [NONFORMULARY] PO SCH (09:18)
[2019-10-05] MEDS: LEVAQUIN 500 MG/D5W 500 MG/100 ML IVPB IV SCH (09:36)
[2019-10-05] MEDS: ASPIRIN EC PO SCH (09:37)
[2019-10-05] MEDS: CASODEX PO SCH (09:37)
[2019-10-05] MEDS: VITAMIN D PO SCH (09:37)
[2019-10-05] MEDS: FOLIC ACID PO SCH (09:37)
[2019-10-05] MEDS: NAMENDA PO SCH ×2 (09:37→21:03)
[2019-10-05] MEDS: MIRALAX PO SCH (17:12)
[2019-10-05] MEDS: LOVENOX SUBQ SCH (21:03)
[2019-10-06] MEDS: DUONEB (A & A) INH SCH ×6 (03:10→23:16)
[2019-10-06] MEDS: PROTONIX [NONFORMULARY] PO SCH (06:27)
[2019-10-06] MEDS: ROCEPHIN 1 GM in NS 50 ML IV SCH (06:28)
--- NOTE | 2019-10-06 06:32 | PROGRESS NOTE ---
DATE: 10/06/2019 SUBJECTIVE: Mr. Neil is feeling some better. The patient was not able to sleep well at night. Could be due to Solu-Medrol. Chest congestion and cough improving. No high-grade fever or chills. Denied any nausea or vomiting. No dysuria or hematuria. OBJECTIVE: Vital Signs: His vital signs as noted. Neck: Supple. No JVD. Lungs: Bibasilar crepitations. Heart: S1 and S2 heard. Abdomen: Soft and globular. Bowel sounds present. Extremities: No cyanosis or clubbing. No acute DVT. LETTERSET PRESS SET UP OPERATOR: Alert and awake. Able to move all 4 limbs. CONSIDERATION: The patient's problems include COPD exacerbation. Initial chest x-ray did reveal bibasilar atelectasis and underlying pneumonia. The patient does have history of prostate cancer and osteoarthritis. I am going to stop IV Solu-Medrol. We will continue p.o. prednisone, bronchodilator treatment, and IV antibiotics. Close observation. PLAN: Overall plan discussed with the patient and family. They are in agreement. If clinical condition permits, I am planning to discharge patient home tomorrow. cc: King Armstrong MD
[2019-10-06] MEDS ORDERED: LASIX IV ONE (08:00)
[2019-10-06] MEDS: LEVAQUIN 500 MG/D5W 500 MG/100 ML IVPB IV SCH (09:35)
[2019-10-06] MEDS: FOLIC ACID PO SCH (09:36)
[2019-10-06] MEDS: NAMENDA PO SCH ×2 (09:36→20:30)
[2019-10-06] MEDS: PREDNISONE PO SCH (09:36)
[2019-10-06] MEDS: MIRALAX PO SCH (09:37)
[2019-10-06] MEDS: ASPIRIN EC PO SCH (09:37)
[2019-10-06] MEDS: CASODEX PO SCH (09:37)
[2019-10-06] MEDS: VITAMIN D PO SCH (09:38)
[2019-10-06] MEDS: LOVENOX SUBQ SCH (20:30)
[2019-10-07] MEDS: DUONEB (A & A) INH SCH ×6 (03:42→23:11)
[2019-10-07] MEDS: ROCEPHIN 1 GM in NS 50 ML IV SCH (06:10)
[2019-10-07] MEDS: PROTONIX [NONFORMULARY] PO SCH (06:10)
[2019-10-07 07:59] LABS: HEMATOCRIT 41.9 % (42.0-52.0); HEMOGLOBIN 13.3 g/dL (14.0-18.0); LYMPH% 17.1 % (20.5-51.1); MCH 30.9 PG (27-31); MCHC 31.7 g/dL (33-37); MCV 97.2 FL (81-99); MONO# 0.76 X1000 (0.11-0.59); MONO% 11.8 % (1.7-9.3); MPV 11.7 FL (7.4-10.4); NEUT# 4.58 X1000 (1.4-6.5); NEUT% 71.1 % (42.2-75.2); PLT 136 X1000 (130-400); RBC 4.31 XMIL (4.7-6.1); RDW 13.9 % (11.5-14.5); WBC 6.44 X1000 (4.8-10.8)
[2019-10-07 08:18] LABS: AGAP 11; ALB/GLOB RATIO 1.2; ALBUMIN 3.2 g/dL (3.5-5.0); ALKALINE PHOSPHATASE 74 U/L (32-122); BUN 20 mg/dL (8-22); CALCIUM 8.6 mg/dL (8.8-10.2); CHLORIDE 100 mmol/L (98-107); COSMO 283; CREATININE 0.9 mg/dL (0.7-1.2); ESTIMATED GFR > 60; GLUCOSE 113 mg/dL (70-104); GOT 25 U/L (10-34); GPT 31 U/L (10-44); MAGNESIUM 2.1 mg/dL (1.5-2.7); POTASSIUM 3.9 mmol/L (3.5-5.1); SODIUM 140 mmol/L (136-145); TCO2 29 mmol/L (25-35); TOTAL BILIRUBIN 0.31 mg/dL (0.20-1.00); TOTAL PROTEIN 5.9 g/dL (6.3-8.3)
[2019-10-07] MEDS: LEVAQUIN 500 MG/D5W 500 MG/100 ML IVPB IV SCH (08:46)
[2019-10-07] MEDS: PREDNISONE PO SCH (08:46)
[2019-10-07] MEDS: MIRALAX PO SCH (08:46)
[2019-10-07] MEDS: CASODEX PO SCH (08:46)
[2019-10-07] MEDS: FOLIC ACID PO SCH (08:46)
[2019-10-07] MEDS: VITAMIN D PO SCH (08:46)
[2019-10-07] MEDS: NAMENDA PO SCH ×2 (08:47→20:33)
[2019-10-07] MEDS: ASPIRIN EC PO SCH (08:47)
[2019-10-07] MEDS ORDERED: LASIX IV ONE (10:05)
--- NOTE | 2019-10-07 10:29 | PROGRESS NOTE ---
DATE: 10/07/2019 SUBJECTIVE: Mr. Neil is feeling some better. The patient is still complaining of cough, chest congestion, O2 saturation is staying low even with 4 L of oxygen. No nausea or vomiting. No diarrhea. Denied any dysuria or hematuria. Patient admitted with possible pneumonia, hypoxemia, does have history of lung cancer. The patient is being followed up by Dr. Steele as an outpatient. OBJECTIVE: Vital signs: His vital signs noted. Neck: Supple. No JVD. Lungs: Bibasilar crepitations, occasional wheezing. Cardiovascular system: S1 and S2 heard. Abdomen: Soft, globular. Bowel sounds present. LAMINATING MACHINE OFFBEARER: Alert, awake, able to move all 4 limbs. LABORATORY DATA: Done today, hemoglobin 13.3, hematocrit 41.9, WBC count 6.44, platelet 136,000. Electrolytes fairly benign. I am going to repeat chest x-ray, get Pulmonary consultation with Dr. Steele. Added Mucomyst nebulizer treatment. CONSIDERATION: 1. Hypoxemia. Admission chest x-ray did reveal possible pneumonia. The patient does have lung mass. 2. History of prostate cancer. Continue rest of the treatment. Close observation. PLAN: Overall plan discussed with patient and daughter and they are in agreement. We will plan discharging patient home hopefully Wednesday if clinical condition permits. cc: King Armstrong MD
[2019-10-07] MEDS: MUCOMYST 20% INH SCH ×2 (11:23→20:13)
[2019-10-07] MEDS: LOVENOX SUBQ SCH (20:33)
[2019-10-08] MEDS: DUONEB (A & A) INH SCH ×6 (03:42→23:19)
[2019-10-08] MEDS: ROCEPHIN 1 GM in NS 50 ML IV SCH (06:12)
[2019-10-08] MEDS: PROTONIX [NONFORMULARY] PO SCH (06:12)
[2019-10-08] MEDS: MUCOMYST 20% INH SCH ×2 (07:53→19:41)
[2019-10-08] MEDS: LEVAQUIN 500 MG/D5W 500 MG/100 ML IVPB IV SCH (09:16)
[2019-10-08] MEDS: FOLIC ACID PO SCH (09:17)
[2019-10-08] MEDS: MIRALAX PO SCH (09:17)
[2019-10-08] MEDS: PREDNISONE PO SCH (09:17)
[2019-10-08] MEDS: NAMENDA PO SCH ×2 (09:17→20:19)
[2019-10-08] MEDS: CASODEX PO SCH (09:17)
[2019-10-08] MEDS: VITAMIN D PO SCH (09:17)
--- NOTE | 2019-10-08 10:32 | CONSULTATION ---
DATE OF CONSULTATION: 10/08/2019 CHIEF COMPLAINT: Shortness of breath. HISTORY OF PRESENT ILLNESS: This is a 79-year-old male with a history of dementia, hypotension, congestive heart failure, COPD, and lung mass, who had been experiencing shortness of breath for several days before presenting to the ER. Chest x-ray revealed basilar atelectasis with underlying pneumonia and small pleural effusion. PAST MEDICAL HISTORY: Dementia, hypertension, congestive heart failure, COPD, he is on home oxygen, lung mass, bibasilar artery aneurysm and AAA. Obstructive sleep apnea. PAST SURGICAL HISTORY: AAA stent, cholecystectomy. ALLERGIES: No known allergies. CURRENT MEDICATIONS: Aspirin 81 mg p.o. daily, Casodex 50 mg p.o. daily, folic acid 1 mg p.o. daily, meclizine 12.5 mg p.o. t.i.d., Namenda 10 mg p.o. b.i.d., potassium 10 mEq p.o. daily. SOCIAL HISTORY: Former smoker. No history of alcohol or illicit drug use. FAMILY HISTORY: Noncontributory. REVIEW OF SYSTEMS: A 10-point review of systems was obtained, and the pertinent is listed within the HPI, otherwise noncontributory. PHYSICAL EXAMINATION: General: This is a 79-year-old male resting in bed, daughter at bedside. No acute distress at the present time. Vital signs: Temperature 98.2, pulse rate 74, blood pressure 152/90, O2 saturation is 97% with nasal cannula at 4 L. Uses BiPAP at night. HEENT: Head is atraumatic and normocephalic. Pupils equal and reactive. Neck: Supple. Trachea midline. Respiratory: Decreased entry. Nonlabored. Cardiac: S1, S2 auscultated. Abdomen: Soft, nontender. Positive bowel sounds in all 4 quadrants. Skin: Warm and dry. Neurologic: He is alert, awake and oriented. DIAGNOSTIC DATA: As listed in HPI. LABORATORY DATA: White blood cells 6.44, red blood cells 4.31, hemoglobin 13.3, hematocrit 41.9. Sodium 140, potassium 3.9, chloride 100, carbon dioxide 29, BUN is 20, creatinine 0.9, AST is 25, ALT is 31, total protein 5.9. ASSESSMENT AND PLAN: 1. Pneumonia. Continue antibiotics and prednisone 15 mg p.o. daily as scheduled. 2. Chronic obstructive pulmonary disease. Continue bronchodilators and p.o. prednisone. 3. Lung mass. We will schedule a CT biopsy for Wednesday. 4. Obstructive sleep apnea. Continue BiPAP use. 5. Dementia. He is on Namenda, continue. 6. Continue DVT prophylaxis with Lovenox. 7. Continue GI prophylaxis with Protonix 40 mg p.o. daily. Thank you for the courtesy of this consult. Time spent with the patient is 33 minutes. Dictated by MILAGROS Vera for Daryl Steele MD cc: MILAGROS Vera MD Bharat K. Vakharia, MD
--- NOTE | 2019-10-08 14:47 | PROGRESS NOTE ---
DATE: 10/08/2019 SUBJECTIVE: The patient is a 79-year-old, white man, patient of Dr. Armstrong, who is hospitalized for pneumonia, COPD, possible lung mass, and history of prostate cancer. He seems to be feeling better with nebulizer, steroids, and antibiotics. He is on 4 L nasal oxygen and BiPAP at night. He uses CPAP and oxygen at home. CT-guided biopsy is scheduled for tomorrow. This will be done by Dr. Steele. His last CBC was done on 10/07/2019, and hematocrit was 41.9, white blood count 6400. He has been afebrile. VITAL SIGNS: Temperature 98.1 degrees, heart rate 90, respirations 16, blood pressure 123/76, O2 saturation on nasal oxygen 90%. IMAGING: Chest x-ray on 10/04/2019 revealed bibasilar atelectasis and possible infiltrate. CT of his chest had been done on 10/01/2019, revealing questionable basilar opacities. Chest x-ray on 10/04/2019 showed some improvement when compared to 10/01/2019 films. The patient is followed by Dr. Mullins for prostate cancer. He receives hormone injections. He has known that he had prostate cancer for about 5 years. PLAN: Continue current treatment. This includes p.o. prednisone, Rocephin, and nebulizer treatments. Dr. Armstrong indicated that he might be able to go home tomorrow. cc: MD King Lora MD
--- NOTE | 2019-10-08 18:01 | PROVIDER PROGRESS NOTE ---
Progress Note Dr. Steele Progress Note/Pulmonary and or critical care Subjective: The patient is lying in bed on NC 2 L with no acute distress noted. No complaints voiced. Daughter at bedside. Objective: Vital signs: T- 98.6, Pulse-86, B/P- 106/48, O2 SAT-94% O2 @4 L/NC PHYSICAL EXAMINATION: General: This is a 79-year-old male resting in bed, daughter at bedside. No acute distress at the present time. HEENT: Head is atraumatic and normocephalic. Pupils equal and reactive. Neck: Supple. Trachea midline. Respiratory: Decreased entry. Nonlabored. Cardiac: S1, S2 auscultated. Abdomen: Soft, nontender. Positive bowel sounds in all 4 quadrants. Skin: Warm and dry. Neurologic: He is alert, awake and oriented. Dr. Steele did assessment and management. MILAGROS Vera did scribbing only. LABS/Radiology: NONE ASSESSMENT AND PLAN: 1. Pneumonia. Continue antibiotics and prednisone 15 mg p.o. daily as scheduled. 2. Chronic obstructive pulmonary disease. Continue bronchodilators and p.o. prednisone. 3. Lung mass. We will schedule a CT biopsy for Wednesday. 4. Obstructive sleep apnea. Continue BiPAP use. 5. Dementia. He is on Namenda, continue. 6. Continue DVT prophylaxis with Lovenox. 7. Continue GI prophylaxis with Protonix 40 mg p.o. daily.
[2019-10-09] MEDS: DUONEB (A & A) INH SCH ×6 (03:20→23:33)
[2019-10-09] MEDS: ROCEPHIN 1 GM in NS 50 ML IV SCH (06:11)
[2019-10-09] MEDS: PROTONIX [NONFORMULARY] PO SCH (06:11)
--- NOTE | 2019-10-09 06:55 | PROGRESS NOTE ---
DATE: 10/09/2019 SUBJECTIVE: Mr. Neil is feeling better. Chest congestion and cough improving. No nausea or vomiting. No high-grade fever or chills. Fisher Seal evaluated the patient. The patient is scheduled to have a lung biopsy today. OBJECTIVE: Vital Signs: Noted. O2 saturation satisfactory. Neck: Supple. No JVD. Lungs: Bibasilar crepitations. Occasional wheezing. Cardiovascular: S1 and S2 heard. Abdomen: Soft. Globular. Bowel sounds present. Extremities: No cyanosis or clubbing. No acute DVT. DIESEL TRUCK MECHANIC: Alert. Awake. Able to move all 4 limbs. CONSIDERATION: 1. Possible pneumonia. The patient is on Levaquin and Rocephin. We will continue. COPD exacerbation. Lung mass presumed to be malignancy. 2. History of prostate cancer. 3. Vitamin D deficiency. 4. Osteoarthritis. The patient is scheduled to have lung biopsy. After procedure if clinical condition permits, we will plan discharging patient home today. cc: King Armstrong MD
[2019-10-09 07:57] LABS: INR 1.07
[2019-10-09 08:18] LABS: AGAP 8; ALB/GLOB RATIO 1.2; ALKALINE PHOSPHATASE 73 U/L (32-122); BUN 17 mg/dL (8-22); CALCIUM 8.5 mg/dL (8.8-10.2); CHLORIDE 102 mmol/L (98-107); COSMO 284; CREATININE 0.8 mg/dL (0.7-1.2); ESTIMATED GFR > 60; GLUCOSE 89 mg/dL (70-104); GOT 15 U/L (10-34); GPT 35 U/L (10-44); MAGNESIUM 2.3 mg/dL (1.5-2.7); POTASSIUM 4.2 mmol/L (3.5-5.1); SODIUM 142 mmol/L (136-145); TCO2 32 mmol/L (25-35); TOTAL BILIRUBIN 0.44 mg/dL (0.20-1.00); TOTAL PROTEIN 5.6 g/dL (6.3-8.3)
[2019-10-09] MEDS: MUCOMYST 20% INH SCH ×2 (08:20→20:12)
[2019-10-09 08:23] LABS: HEMATOCRIT 41.8 % (42.0-52.0); HEMOGLOBIN 13.3 g/dL (14.0-18.0); MCH 31.1 PG (27-31); MCHC 31.8 g/dL (33-37); MCV 97.9 FL (81-99); MPV 11.4 FL (7.4-10.4); PLT 175 X1000 (130-400); RBC 4.27 XMIL (4.7-6.1); RDW 13.8 % (11.5-14.5); WBC 6.11 X1000 (4.8-10.8)
[2019-10-09 08:35] LABS: LYMPHS 24 % (21-51); MONO 5 % (1-9); SEGS 69 % (42-75)
[2019-10-09] MEDS: LEVAQUIN 500 MG/D5W 500 MG/100 ML IVPB IV SCH (08:46)
--- NOTE | 2019-10-09 11:26 | Diag Imaging Result Doc PS360 ---
EXAM: CHEST-2 VIEWS 10/09/2019 HISTORY: POST LEFT LUNG BIOPSY TECHNIQUE: Inspiratory expiratory chest COMMENT: There is no evidence of pneumothorax or abnormal fluid collection. The right lower lobe pneumonia which was present previously has improved, otherwise the appearance of the chest has not changed significantly since 10/04/2019. IMPRESSION: No evidence of abnormal fluid collection or pneumothorax. Electronically signed by Jacob Jha 10/09/2019 11:23 AM
--- NOTE | 2019-10-09 11:41 | Diag Imaging Result Doc PS360 ---
EXAM: CT GUIDED BIOPSY LUNG 10/09/2019 HISTORY: Peripherla enlarging nodule TECHNIQUE: CT-guided biopsy of the left upper lobe COMMENT: The risks and benefits of the procedure including the possibility of bleeding, infection, pneumothorax, or reaction to lidocaine was discussed with the patient and he agreed to the procedure. Following sterile preparation of the skin anteriorly and administration 1% lidocaine to the skin and deeper soft tissues, a 20-gauge coaxial Temno core biopsy needle was employed to obtain four cores from the nodule in the anterior left upper lobe. There are no immediate complications. The patient tolerated the procedure well. IMPRESSION: Successful CT-guided biopsy of the left upper lobe. Electronically signed by Jacob Jha 10/09/2019 11:38 AM
[2019-10-09] MEDS: MIRALAX PO SCH (11:42)
[2019-10-09] MEDS: VITAMIN D PO SCH (11:42)
[2019-10-09] MEDS: NAMENDA PO SCH ×2 (11:42→20:48)
[2019-10-09] MEDS: CASODEX PO SCH (11:42)
[2019-10-09] MEDS: FOLIC ACID PO SCH (11:42)
[2019-10-09] MEDS: PREDNISONE PO SCH (11:42)
--- NOTE | 2019-10-09 13:34 | Diag Imaging Result Doc PS360 ---
EXAM: CHEST-2 VIEWS 10/09/2019 HISTORY: lung biopsy TECHNIQUE: Inspiratory expiratory chest COMMENT: There is no evidence of pneumothorax or pleural fluid collection. No appreciable change has occurred since the previous series at 1116. IMPRESSION: Stable chest. Electronically signed by Jacob Jha 10/09/2019 1:32 PM
[2019-10-09] MEDS ORDERED: TYLENOL PO PRN (14:06)
--- NOTE | 2019-10-09 15:08 | Diag Imaging Result Doc PS360 ---
EXAM: CHEST-2 VIEWS 10/09/2019 HISTORY: follow up lung Bx TECHNIQUE: Inspiratory expiratory chest COMMENT: There is no evidence of pneumothorax or pleural fluid collection. The appearance of the chest has not changed appreciably since the previous series at 1327. IMPRESSION: No evidence of pneumothorax. Electronically signed by Jacob Jha 10/09/2019 3:06 PM
--- NOTE | 2019-10-09 17:50 | PROVIDER PROGRESS NOTE ---
Progress Note Dr. Steele Progress Note/Pulmonary and or critical care Subjective: The patient is lying in bed on room air. He underwent CT biopsy this morning. He denies any pain or chest discomfort at this time. CXR shows no complication from biopsy. Patients daughter is sleeping in the bedside couch. Objective: Vital Signs: T 97.6 (no fever in last 24 hours), IL 72, RR 18, BP 149/83 and SaO2 96% on NC 5L. Physical Examination: General: Lying in bed with no acute distress noted. HEENT: Normocephalic. Atraumatic. Trachea midline. Mucosa pink and moist. PERRL. Chest: Even and unlabored. Symmetrical excursion. Good air entry bilaterally with bibasilar inspiratory crackles. CVS: Regular rate and rhythm. S1 and S2 appreciated. Abdomen: Soft. Non-tender. Non-distended. Normoactive bowel sounds in all 4 quadrants. Extremities: BLE trace edema. No cyanosis. Neuro: A/O x3. Speech fluent. Follow commands. Labs and Radiology: Laboratory Results 10/09/19 10/09/19 10/09/19 07:27 07:27 07:27 WBC 6.11 RBC 4.27 L Hgb 13.3 L Hct 41.8 L MCV 97.9 MCH 31.1 H MCHC 31.8 L RDW Std Deviation 13.8 Plt Count 175 MPV 11.4 H Neut % (Auto) Not Reportable Lymph % (Auto) Not Reportable Smith % (Auto) Not Reportable Eos % (Auto) Not Reportable Baso % (Auto) Not Reportable Neut # (Auto) Not Reportable Lymph # (Auto) Not Reportable Smith # (Auto) Not Reportable Eos # (Auto) Not Reportable Baso # (Auto) Not Reportable Segmented Neutrophils 69 Lymphocytes 24 Monocytes 5 Unidentified Cells 2.0 PT 14.0 INR 1.07 Sodium 142 Potassium 4.2 Chloride 102 Carbon Dioxide 32 Anion Gap 8 BUN 17 Creatinine 0.8 Estimated GFR/1.73 m2 > 60 BUN/Creatinine Ratio 21 Glucose 89 Calculated Osmolality 284 Calcium 8.5 L Magnesium 2.3 Total Bilirubin 0.44 AST 15 ALT 35 Alkaline Phosphatase 73 Total Protein 5.6 L Albumin 3.0 L Globulin 2.6 Albumin/Globulin Ratio 1.2 Assessment: Acute on chronic hypoxemic respiratory failure. Possible basilar pneumonia with atelectasis and small pleural effusions. COPD exacerbation. Lung mass. NATASHA. Dementia. Plan: CT guided lung biopsy performed today. Supplemental oxygen as needed. BiPAP at bedtime and as needed as patient allows. We titrated supplemental oxygen and BiPAP settings to patients needs per clinical protocols. Continue antibiotics, including Ceftriaxone and Levaquin. Continue oral prednisone. Continue bronchodilators and Mucomyst. Continue GI and DVT prophylaxis.
[2019-10-10] MEDS: DUONEB (A & A) INH SCH ×6 (04:01→23:30)
[2019-10-10] MEDS: ROCEPHIN 1 GM in NS 50 ML IV SCH (06:20)
[2019-10-10] MEDS: PROTONIX [NONFORMULARY] PO SCH (06:20)
[2019-10-10] MEDS: MUCOMYST 20% INH SCH ×2 (07:40→20:25)
[2019-10-10] MEDS: LEVAQUIN 500 MG/D5W 500 MG/100 ML IVPB IV SCH (08:42)
[2019-10-10] MEDS: MIRALAX PO SCH (08:43)
[2019-10-10] MEDS: NAMENDA PO SCH ×2 (08:45→21:55)
[2019-10-10] MEDS: VITAMIN D PO SCH (08:45)
[2019-10-10] MEDS: CASODEX PO SCH (08:45)
[2019-10-10] MEDS: FOLIC ACID PO SCH (08:45)
[2019-10-10] MEDS: PREDNISONE PO SCH (08:46)
--- NOTE | 2019-10-10 16:55 | PROVIDER PROGRESS NOTE ---
Progress Note Dr. Steele Progress Note/Pulmonary and or critical care Subjective: The patient is lying in bed on room air with SaO2 at low 80s. He states somebody pulled oxygen off him at an earlier time. I put NC back on him and I have to increase the oxygen flow rate up to 5L to get SaO2 in low 90s. Patients daughter and granddaughter are sleeping at the bedside. Objective: Vital Signs: T 98.1 (no fever in last 24 hours), NC 67, RR 16, BP 175/83 and SaO2 97% on NC 6L. Physical Examination: General: Lying in bed with no acute distress noted. HEENT: Normocephalic. Atraumatic. Trachea midline. Mucosa pink and moist. PERRL. Chest: Even and unlabored. Symmetrical excursion. Diminished air entry bilaterally. CVS: Regular rate and rhythm. S1 and S2 appreciated. Abdomen: Soft. Non-tender. Non-distended. Normoactive bowel sounds in all 4 quadrants. Extremities: BLE trace edema. No cyanosis. Neuro: A/O x3. Speech fluent. Follow commands. Labs and Radiology: Assessment: Acute on chronic hypoxemic respiratory failure. Possible basilar pneumonia with atelectasis and small pleural effusions. COPD exacerbation. Lung mass. s/p CT guided lung biopsy on 10/09/19. NATASHA. Dementia. Plan: Supplemental oxygen as needed. We will keep weaning oxygen as tolerated. BiPAP at bedtime and as needed as patient allows. We titrated supplemental oxygen and BiPAP settings to patients needs per clinical protocols. Continue antibiotics, including Ceftriaxone and Levaquin. Continue oral prednisone. Continue bronchodilators and Mucomyst. Continue GI and DVT prophylaxis.
[2019-10-11] MEDS: DUONEB (A & A) INH SCH ×4 (04:05→15:35)
[2019-10-11] MEDS: ROCEPHIN 1 GM in NS 50 ML IV SCH (06:33)
[2019-10-11] MEDS: PROTONIX [NONFORMULARY] PO SCH (06:33)
--- NOTE | 2019-10-11 06:54 | PROGRESS NOTE ---
DATE: 10/10/2019 SUBJECTIVE: Mr. Neil is doing better. Plan was to discharge patient home yesterday but his O2 saturation was low and the grain loader canceled discharge. He denied any fever or chills. The patient does have, at times, a cough, no expectoration. Denied any nausea or vomiting. Oral intake is good. No fever or chills. Occasional cough. The patient is status post lung biopsy. No clinical evidence of pneumothorax. OBJECTIVE: Vital Signs: Noted. Neck: Supple. No JVD. Lungs: Bibasilar crepitations. Occasional wheezing. CVS: S1 and S2 heard. Abdomen: Soft, globular. Bowel sounds present. No acute DVT. 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 Able to move all 4 limbs. CONSIDERATION: 1. Chronic obstructive pulmonary disease exacerbation. 2. Lung mass, status post biopsy. 3. History suggestive of prostate cancer. PLAN: We will continue monitoring patient. cc: King Armstrong MD
--- NOTE | 2019-10-11 06:57 | PROGRESS NOTE ---
DATE: 10/11/2019 SUBJECTIVE: Mr. Neil is doing better. His discharge was canceled yesterday because of hypoxemia/ the patient is tolerating 6 L oxygen via nasal cannula well, and his O2 saturation is doing better. Mild cough with scanty sputum production. No hemoptysis. No high-grade fever or chills. No typical chest pain or palpitation. No blood or mucus in the stool. OBJECTIVE: Vital Signs: His vital signs noted, which is satisfactory. Neck: Neck is supple. No JVD. Lungs: Bibasilar crepitations. Heart: S1 and S2 heard. Abdomen: Soft, globular. Bowel sounds present. Extremities: No acute DVT. SIZER HAND: Alert, awake. Able to move all 4 limbs. LABORATORY DATA: Noted. CONSIDERATION: 1. Hypoxemia. 2. Chronic obstructive pulmonary disease exacerbation. 3. Possible pneumonia. 4. Lung mass status post biopsy. 5. History of prostate cancer. 6. History suggestive of aneurysm of basilar artery. PLAN: I am going to continue current treatment. Close observation. If I decrease his oxygen 3 L via nasal cannula, if clinical condition permits, we will plan discharging patient home soon. cc: King Armstrong MD
[2019-10-11] MEDS: MUCOMYST 20% INH SCH (07:55)
[2019-10-11] MEDS: LEVAQUIN 500 MG/D5W 500 MG/100 ML IVPB IV SCH (08:17)
[2019-10-11] MEDS: CASODEX PO SCH (08:19)
[2019-10-11] MEDS: PREDNISONE PO SCH (08:19)
[2019-10-11] MEDS: VITAMIN D PO SCH (08:19)
[2019-10-11] MEDS: NAMENDA PO SCH (08:19)
[2019-10-11] MEDS: ASPIRIN EC PO SCH (08:20)
[2019-10-11] MEDS: FOLIC ACID PO SCH (08:20)
[2019-10-11] MEDS: MIRALAX PO SCH (08:22)
[2019-10-11 12:43] VITALS: BP 114/54
--- NOTE | 2019-10-11 18:59 | PROVIDER PROGRESS NOTE ---
Progress Note Dr. Steele Progress Note/Pulmonary and or critical care Subjective: The patient is lying in bed on room air with SaO2 at 88%. We put him back on NC 2L. He reports no cough, hemoptysis or SOB. Patients daughter is sleeping at the bedside. Objective: Vital Signs: T 98.7 (no fever in last 24 hours), RI 71, RR 20, BP 123/60 and SaO2 93% on NC 3L. Physical Examination: General: Lying in bed with no acute distress noted. HEENT: Normocephalic. Atraumatic. Trachea midline. Mucosa pink and moist. PERRL. Chest: Even and unlabored. Symmetrical excursion. Diminished air entry bibasilarly. CVS: Regular rate and rhythm. S1 and S2 appreciated. Abdomen: Soft. Non-tender. Non-distended. Normoactive bowel sounds in all 4 quadrants. Extremities: BLE trace edema. No cyanosis. Neuro: A/O x3. Speech fluent. Follow commands. Labs and Radiology: Assessment: Acute on chronic hypoxemic respiratory failure. Possible basilar pneumonia with atelectasis and small pleural effusions. COPD exacerbation. Lung mass. s/p CT guided lung biopsy on 10/09/19. NATASHA. Dementia. Plan: Supplemental oxygen as needed. BiPAP at bedtime and as needed as patient allows. We titrated supplemental oxygen and BiPAP settings to patients needs per clinical protocols. Continue antibiotics, including Ceftriaxone and Levaquin. Continue oral prednisone. Continue bronchodilators and Mucomyst. Continue GI and DVT prophylaxis. Ok to be discharged from a stud driver standpoint.
--- NOTE | 2019-11-01 08:06 | DISCHARGE SUMMARY ---
ADMISSION DATE: 10/04/2019 DISCHARGE DATE: 10/11/2019 FINAL DISCHARGE DIAGNOSES: 1. Chronic obstructive pulmonary disease exacerbation. 2. Possible pneumonia. 3. Lung mass, status post biopsy. Biopsy is suggestive of adenocarcinoma. 4. History of prostate cancer. 5. Aneurysm of the basilar artery. 6. Hypoxemia. 7. History of hypertension. 8. Gastritis and reflux disease. 9. Osteoarthritis. 10. Congestive heart failure. HISTORY OF PRESENT ILLNESS: Mr. Neil is a 79-year-old, gentleman with multiple medical problems, admitted with chest congestion, cough, hypoxemia. His O2 saturation was staying low. The patient was getting short of breath. The patient does have chronic cough. Evaluation in the ER did reveal possible pneumonia. The patient was admitted to a telemetry bed. The patient was started on IV antibiotics, pulmonary toilet, bronchodilator treatment. At times, patient remained hypoxemic. Pulmonary consult obtained with his manager internal, Dr. Steele. The patient underwent CT-guided biopsy of his lung mass which did reveal adenocarcinoma. Patient was eager to go home. The patient was stable to be discharged and I discharged patient home with home health in stable condition. Discussed biopsy result with patient and daughter. They will think about further treatment plan. The patient and daughter are more inclined toward not to have chemotherapy or further intervention or radiation. They will discuss with oncologist in followup. Overall discharge condition satisfactory. LABORATORY DATA: Last hemoglobin 13.3, hematocrit 41.8, WBC count 6.11, platelet count 175,000. PT/INR 1.07. Electrolytes were benign. TSH 0.28, free T4 of 1.19. Vitamin B12 level was 788. Biopsy of left lung, adenocarcinoma, moderately differentiated with bronchoalveolar features. Blood culture was no growth. Flu test was negative. DISCHARGE MEDICATIONS: As per separate sheet. DISCHARGE INSTRUCTIONS: Patient was advised to have followup with me in a week's time. We will get him home health. In case of more distress, call us back or go to emergency room. cc: King Armstrong MD
== END 2019-10-11 17:18 | disposition home health service (06) | DRG 180 ==
LOC: ED 01:00 → EDIPHOLD 06:13 → SUATTDRO 06:13 → 3N 16:00
PROVIDERS: ADMIT Internal Medicine; ATTEND Internal Medicine